=== PATIENT | female | born 1935 | race Caucasian/White ===

== ENCOUNTER 2023-11-02 01:33 | Inpatient (IN) | payer OTHER, SELFPAY ==
[2023-11-01 17:38] VITALS: BMI 27.0
[2023-11-01 17:46] VITALS: BP 130/84
[2023-11-01 18:23] LABS: % Basophils 0.4 % (0-2); % Eosinophils 1.4 % (0-6); % Immature Granulocytes 0.8 % (0-0.5); % Monocytes 10.3 % (1.7-9.3); % Neutrophils 83.1 % (42.2-75.2); Absolute Basophils 0.1 10^3/uL (0-0.2); Absolute Eosinophils 0.2 10^3/uL (0-0.7); Absolute Immature Granulocytes 0.1 10^3/uL (0-0.05); Absolute Lymphocytes 0.6 10^3/uL (1.2-3.4); Absolute Monocytes 1.6 10^3/uL (0.1-0.6); Absolute Neutrophils 12.8 10^3/uL (1.4-6.5); Hemoglobin 13.8 g/dL (12.0-16.0); Mean Corp Hgb Conc. 34.5 g/dL (33.0-37.0); Mean Corpuscular Hgb 31.2 pg (27.0-31.0); Mean Corpuscular Volume 90.3 fL (81.0-99.0); Mean Platelet Volume 10.4 fL (7.4-10.4); Nucleated Red Blood Cells % 0 %; Platelet Count 162 10^3/uL (130-400); Red Blood Cell Count 4.43 10^6/uL (4.20-5.40); Red Cell Dist. Width 12.5 % (11.5-14.5); White Blood Cell Count 15.4 10^3/uL (4.8-10.8)
[2023-11-01 18:26] LABS: ALT (SGPT) 11 U/L (0-35); AST (SGOT) 26 U/L (14-36); Albumin 3.3 g/dl (3.5-5.0); Alkaline Phosphatase 53 U/L (38-126); Blood Urea Nitrogen 29 mg/dl (7-17); Calcium 8.9 mg/dl (8.4-10.2); Carbon Dioxide 26 mmol/L (22-30); Chloride 104 mmol/L (98-107); Glucose 120 mg/dl (70-99); Lactic Acid 0.9 mmol/L (0.7-2.0); Potassium 3.6 mmol/L (3.5-5.1); Sodium 135 mmol/L (135-145); Total Bilirubin 1.3 mg/dl (0.2-1.3); Total Protein 5.9 g/dl (6.3-8.2); eGFR > 60.00
[2023-11-01 18:33] LABS: COVID-19 Antigen Negative (Negative)
[2023-11-01 22:00] VITALS: BP 133/76
[2023-11-01] MEDS: DUONEB 3 ML INH (22:30)
[2023-11-01 23:05] VITALS: BP 142/68
[2023-11-01] MEDS: NSS 1000 IV (23:07)
--- NOTE | 2023-11-01 23:08 | ED.GENMED ---
History of Present Illness
General
Chief Complaint: Breathing Problem
Source: patient and family
Exam Limitations: none
Time Seen by Provider: 11/01/23 21:14
Nursing documentation reviewed up to this point in time: agreed with
Travel History
Have you had any contact with someone who has COVID-19?: No
Do you have any symptoms of coronavirus? Fever > 100 degrees, chills, cough, shortness of breath, sore throat, loss of taste or smell, muscle aches, or headache?: No
History of Present Illness
History of Present Illness:
Patient to ED with complaint of cough, SOB, weakness, low grade temp, poor appetite. Symptoms started last night. Family reports has similar symptoms. He was evalutated at [facility] and discharged with an inhaler. Family states
advised CARMELITA come to ED for further evaluation. PUlse ox in mid 80'S RA. Placed on 3LNC in ED, pulse ox 93% at rest.
Past History
Past History
ED Past Medical History: GERD, HTN, Hypothyroidism and Other (PMR, dementia, T12 compression fracture, anxiety depression, diverticulitis, anemia)
ED Past Surgical History: Appendectomy, Orthopedic and Tonsilectomy
Social History
Tobacco: Non-smoker
Alcohol: None
Drug: None
Personal:
Living: with family
Review of Systems
Review of Systems
Allergies reviewed?: Yes
All Other Systems: ROS reviewed and negative except as documented in HPI and ROS
Constitutional: Reports fatigue
EENT: Reports no symptoms
Respiratory: Reports cough
Cardiac: Reports no symptoms
ABD/GI: Reports anorexia
: Reports no symptoms
Musculoskeletal: Reports no symptoms
Skin: Reports no symptoms
Neurological: Reports weakness
Psychiatric: Reports no symptoms
Phy Exam
General Physical Exam
General Presentation: mild distress
General age: appears stated age
General Skin: warm and dry
General Habitus: elderly
General Mental: alert
Cardiovascular Exam
Cardiovascular Exam: regular rate/rhythm and no edema
Pulmonary Exam
Pulmonary Exam: chest non tender and decreased breath sounds
Oxygen Status: oxygen 3 liters via NC
Cough: coarse cough
Gastrointestinal Exam
Gastrointestinal Exam: normal bowel sounds, non tender, soft, no organomegaly, no pulsatile mass, non distended and no cva tenderness
Musculoskeletal Exam
Musculoskeletal Exam: full ROM and neuro vasc intact
Skin Exam
Skin Exam: normal color, warm/dry and no rash
Psychiatric Exam
Psychiatric Exam: normal mood/affect
Scores
Heart Failure Risk
Heart Failure Risk Score: Not Applicable
Course
Orders/Labs/Results
Orders:
Orders
11/01/23
CR Chest - 2 Views Urgent
Comment:
Reason For Exam: cough
11/01/23 18:03
COVID-19 Antigen Urgent
Source: Nasal Swab
Complete Blood Count/With Diff Urgent
Comprehensive Metabolic Panel Urgent
Lactic Acid Urgent
NT-proBNP Urgent
Comment: ADD ON
Blood Culture Urgent
JOSE Source: Blood/Venous
Specimen Description:
Influenza A+B Rapid Molecular Urgent
JOSE Source: Nasal Swab
Specimen Description:
11/01/23 21:55
Ipratropium/Albuterol Sulfate [Duoneb] 3 ml INH R NOW ONE
11/01/23 21:56
0.9% Sodium Chloride 1000 ml [Nss] 1,000 ml IV BOLUS
11/01/23 23:04
Lactic Acid Urgent
Urinalysis Reflex To Culture Urgent
Date Specimen was Collected: 11/02/23
Time Specimen was Collected: 02:50
11/01/23 23:09
Add On- LAB Urgent
Tests Added?: BNP
11/01/23 23:43
Azithromycin 500 mg/250 ml [Zithromax Infusion] 500 mg in 250 ml IV NOW
Aztreonam [Azactam] 2,000 mg IV NOW STA
11/02/23 01:03
Admit/Transfer Patient As Directed
Co-Sign Provider:
Level of Care: Inpatient admission
Assign to:: Telemetry
Physician / Group: Troy
Diagnosis: Acute Hypoxemic Resp Insufficiency, Bronchitis
Reason for Telemetry: Arrhythmia
Date to Stop Telemetry: 11/05/23
Time to Stop Telemetry: 11:00
Reason for Hospitalization: Acute Hypoxemic Resp Insufficiency, Bronchitis
Expected length of stay greater than two midnights?: Yes
ELOS- Estimated Length of Stay in days: 3
I certify the patient meets the requirements for IP care: Yes
Code Status As Directed
Resuscitation Status: Full Code
11/02/23 01:36
Albuterol Nebs [Ventolin Nebules] 2.5 mg INH R Q4HPRN PRN
11/02/23 01:36
Activity As Directed
Activity Level: Out of Bed- Chair
With Assistance
Bladder Scan As Directed
Follow Bladder Retention/Intermittent Cath Algorithm?: Yes
PRN if no void in __ hours: 6
Frequency: Per Retention Algorithm
If Bladder Scan Result >: 400
then:: Straight cath
I/O [Intake/ Output] As Directed
Frequency: Per unit guidelines
Straight Cath As Directed
Frequency: Per Retention Algorithm
Additional Instructions: straight cath as needed per acute urinary retention algorithm for 24 hrs
Additional Instructions: for bladder scan greater than 400 mL
Vital Signs As Directed
Frequency: Per unit guidelines
Chest PT [Rx Chest Pt] [RESP] Routine
Special Instructions: BID
Oxygen Therapy [O2 Therapy] [RESP] Routine
Titrate/Wean O2 to maintain O2 sat greater than (%): 94
Ot Eval And Treat Routine
PT Consult [Pt Eval And Treat] Routine
Activity Level: Ambulate
With Assistance
Speech Therapy Eval & Treat Routine
DX Deep Vein Thrombosis Video Routine
11/02/23 05:31
Basic Metabolic Panel IN AM
Complete Blood Count/No Diff IN AM
11/02/23 Breakfast
Regular
At Your Request: Limited Participation
US Periph Venous UPPER Ext LT IN AM
Comment:
Reason For Exam: Asymmetric Hand Swelling
11/02/23 07:00
Levothyroxine [Synthroid] 100 mcg PO DAILY AT 0700
11/02/23 08:00
Acetaminophen [Tylenol] 1,000 mg PO TID
Duloxetine Delayed Release [Cymbalta Delayed Release] 30 mg PO BID
Guaifenesin [Mucinex] 600 mg PO Q12
Heparin 5,000 units SC Q12
Ipratropium/Albuterol Sulfate [Duoneb] 3 ml INH R QID
Prednisone [Deltasone] 5 mg PO DAILY
11/02/23 20:00
Doxycycline [Vibramycin] 100 mg PO Q12
11/02/23 22:00
Divalproex Extended Rel. 24 Hr [Depakote ER (24 Hr Release)] 500 mg PO HS
11/05/23 11:00
DC Protocol for Telemetry ONCE
Abnormal Lab Results
11/01/23
18:03
WBC 15.4 H 10^3/uL
(4.8-10.8)
MCH 31.2 H pg
(27.0-31.0)
Abs Immat Gran (auto) 0.1 H 10^3/uL
(0-0.05)
Absolute Neuts (auto) 12.8 H 10^3/uL
(1.4-6.5)
Absolute Lymphs (auto) 0.6 L 10^3/uL
(1.2-3.4)
Absolute Monos (auto) 1.6 H 10^3/uL
(0.1-0.6)
Immature Gran % 0.8 H %
(0-0.5)
Neutrophils % 83.1 H %
(42.2-75.2)
Lymphocytes % 4.0 L %
(20.5-51.1)
Monocytes % 10.3 H %
(1.7-9.3)
BUN 29 H mg/dl
(7-17)
Glucose 120 H mg/dl
(70-99)
Total Protein 5.9 L g/dl
(6.3-8.2)
Albumin 3.3 L g/dl
(3.5-5.0)
11/01/23 18:03
11/01/23 18:03
Vital Signs
Initial and Last Documented VS:
Initial Vital Signs
Temp Pulse Resp BP Pulse Ox
99.3 F 97 18 130/84 92
11/01/23 17:46 11/01/23 17:46 11/01/23 17:46 11/01/23 17:46 11/01/23 17:46
Last Documented Vital Signs
Temp Pulse Resp BP Pulse Ox
97.7 F 81 16 114/54 92
11/03/23 15:00 11/03/23 15:33 11/03/23 15:33 11/03/23 15:00 11/03/23 15:33
*Radiology
Radiology exam reviewed: radiology read reviewed
*Pulse Oximetry
Patient hypoxic: yes
*Critical Care Note
Total Time (30-74mins, 75-104mins- exclusive of procedures): Not Applicable
Update Note
Update Note:
Patient to ED with complaint of weakness, cough, poor appetite x 24 hours. Low grade temp (99.5) at home. Pulse ox mid 80's RA on arrival. Placed on 3LNC in ED,given neb tx, now 94%.Labs reviewed. WBC 15 with left shift. Lactic normal. CXR
NAD. Continues with course cough. Clinically her symptoms are consistent with early pneumonia. Will admit to hospitalist
ED Attending Note
-
Portions of this chart may have been created with voice recognition software.� Occasional wrong word or��sound alike� substitutions may have occurred due to the inherent limitations of voice recognition software.
Discharge Plan
Departure
Patient Disposition: Admit
Date of Disposition: 11/01/23
Time of Disposition: 23:46
Presentation/result/management discussed w/ accepting MD/DO: Hospitalist
Condition: Fair
Covid-19: Not Applicable
Discharge Problem:
Acute bronchitis, Hypoxemia
Interventions
Interventions:
*Risk Screen - Suicide Last Done: 11/01/23 17:46
*General Assessment Last Done: 11/01/23 17:46
*Neglect/Abuse Screening Last Done: 11/01/23 22:01
ED- Fall Risk Assessment Last Done: 11/01/23 22:00
*ED COVID-19 Vaccine History Last Done: 11/01/23 22:01
*Nursing Disposition Last Done: 11/02/23 03:46
ED- Cardiac Assessment Last Done: 11/01/23 22:00
ED- Pulmonary Assessment Last Done: 11/01/23 22:00
Discharge Date and Time
Discharge Date/Time: 11/02/23 03:46
[2023-11-01 23:22] LABS: Lactic Acid 1.6 mmol/L (0.7-2.0)
[2023-11-01] MEDS: AZACTAM 2000 MG IV (23:49)
[2023-11-01] MEDS: ZITHROMAX INFUSION 250 IV (23:50)
[2023-11-02] VITALS (11 sets, daily range): BP systolic 106–154; BP diastolic 53–76; PULSE 85–89; O2SAT 89–92; BMI 26.4
[2023-11-02 00:14] LABS: NT-proBNP 871 pg/ml
--- NOTE | 2023-11-02 01:08 | HPS.HSE ---
Family Physician
-
Family Physician: Mathew Barr IV, MD
Chief Complaint
-
Cough, SOB
History of Present Illness
Patient is an 88y F with PMH significant for dementia, polymyalgia rheumatica and hypothyroidism who presents to ED for evaluation of cough and SOB. History obtained from patient and family present at the bedside. Patient at times does not
speak much - which daughter states is typical for her. Patient's had cough / cold symptoms for the past several days. About 1 1/2 days ago, patient developed cough that was loose, but not notably productive. Her cough seemed to be much
worse when lying flat. Today patient and her were taken to Urgent Care for evaluation of their symptoms. He was discharged with an inhaler. She was noted to be hypoxemic with SpO2 in the 80s on room air and was referred to the ED for
further evaluation.
At the time of my examination, patient is sleeping comfortably but awakens easily. She has adequate oxygenation on supplemental O2.
Medical History
Past Medical History
Past Medical History: Reports Other
Additional Past Medical History:
Dementia/Short-Term Memory Impairment
Chronic Pain with Opiod Dependence
Polymyalgia Rheumatica
Hypothyroidism
Anxiety
Migraine Headache
Past Surgical History: Reports Other
Additional Past Surgical History:
Tonsillectomy
Appendectomy
Fundoplication
Left elbow surgery
Laminectomy
Bilateral knee replacements
Left hip replacement
Cataracts
Social History
Tobacco: Non-smoker
Alcohol: None
Living: With Family
Family History
Family History: Not pertinent
Allergies / Home Medications
Allergies reflects when Allergies were last updated in [facility].
Home Medications with original date entered in [facility]
Allergy/Medication List:
Allergies
Allergy/AdvReac Type Severity Reaction Status Date / Time
adhesive tape Allergy Rash Verified 11/01/23 17:46
Anesthetics - Amide Type - Allergy gets Verified 11/01/23 17:46
Select A nervous
Penicillins Allergy Hives Verified 11/01/23 17:46
Home Medications
duloxetine 30 mg capsule,delayed release 30 mg PO BID Neurological Condition 09/06/22
hydrocodone 5 mg-acetaminophen 325 mg tablet 1 tab PO BID 09/06/22
naproxen sodium 220 mg tablet (Aleve) 220 mg PO HS Pain 09/06/22
cholecalciferol (vitamin D3) 25 mcg (1,000 unit) tablet (Vitamin D3) 25 mcg PO DAILY 11/01/23
divalproex 250 mg tablet,extended release 24 hr 500 mg PO HS 11/01/23
levothyroxine 100 mcg tablet 100 mcg PO DAILY 11/01/23
prednisone 5 mg tablet 5 mg PO DAILY 11/01/23
Review of Systems
-
History Source: Patient and Family
A 12 point ROS was completed and negative except as noted: Yes
Constitutional: Reports Fatigue; Denies Fever or Chills
Respiratory: Reports Cough and Trouble Breathing; Denies Hemoptysis
Cardiac: Denies Chest Pain or Diaphoresis
Abdomen/GI: Denies Abdominal Pain, Nausea, Vomiting, Diarrhea, Bloody Stools or Black Stools
: Denies Dysuria, Frequency or Flank Pain
Neurological: Reports Weakness (chronic / wheelchair bound at baseline.); Denies Dizzy or Headache
Psych: Reports Dementia
Physical Exam
Vital Signs
Vital Signs
Temp Pulse Resp BP Pulse Ox
99.3 F 85 24 154/76 94
11/01/23 17:46 11/02/23 00:00 11/01/23 23:45 11/02/23 00:00 11/02/23 00:07
Physical Exam
General: Other (88y F in no acute distress. Slow speech. At times answers questions normally and at times has almost expressive aphasia (baseline per family).)
HEENT: PERRLA and Other (Dry MM.)
Respiratory: Other (Bibasilar rales about 1/2 up. No wheezes / rhonchi.)
Cardiac: S1/S2, Regular Rhythm and Murmur (III/ LARRY)
GI: Soft, Non Tender, Non Distended and Normal Bowel Sounds
Musculoskeletal: No Clubbing, No Cyanosis and Other (Trace edema on the L hand. No erythema, induration or tenderness.)
Neuro: Awake
Psych: Apparent Dementia
Laboratory Results
-
11/01/23 18:03
11/01/23 18:03
Laboratory Results
Lactic Acid 1.6 mmol/L (0.7-2.0) 11/01/23 23:04
Total Bilirubin 1.3 mg/dl (0.2-1.3) 11/01/23 18:03
AST 26 U/L (14-36) 11/01/23 18:03
ALT 11 U/L (0-35) 11/01/23 18:03
Alkaline Phosphatase 53 U/L (38-126) 11/01/23 18:03
Impression/Plan
-
A/P: Patient is an 88y F with PMH significant for dementia, hypothyroidism and polymyalgia rheumatica who presents to ED for evaluation of cough and dyspnea.
Acute Hypoxemic Respiratory Insufficiency
Acute Bronchitis
- Admit for further evaluation and treatment.
- SpO2 reportedly in the 80s on room air - now stable on supplemental O2.
- Will cover with empiric abx with doxycycline for now.
- Continue O2 support.
- Chest PT, mucolytics, nebs, etc.
- Follow for clinical improvement.
LUE Edema
- Left hand edema. Likely related to prior trauma / chronic L elbow limitation and deformity.
- Check US to rule out DVT.
Senile Dementia
- Has been progressive - but seems at baseline currently per daughter.
- Follow for any acute agitation / delirium during hospital stay.
- Continue mood stabilizing medication.
PMR
- Stable. No current complaints of pain.
- Continue prednisone dose without changes for now.
Chronic Pain Syndrome
- Continue Cymbalta. Standing Tylenol.
- [place] PRN.
- Follow for any acute changes.
Hypothyroidism
- Continue current T4 supplementation.
DVT Prophylaxis: Subcut Heparin
Code Status: Full
[2023-11-02 03:41] LABS: Urine Albumin Trace (Neg - Trace); Urine Bilirubin 1+ (Negative); Urine Character Slightly Cloudy (Clear); Urine Color Yellow; Urine Glucose Negative (Negative); Urine Ketone 3+ (Negative); Urine Leukocyte Trace (Negative); Urine Nitrite Negative (Negative); Urine Occult Blood Negative (Negative); Urine Specific Gravity 1.025 (<1.030); Urine Urobilinogen 2+ (Neg - 1+)
[2023-11-02 04:22] LABS: Urine Squamous Cell >30 /LPF (Few)
[2023-11-02 04:25] LABS: Urine Amorphous Seen
[2023-11-02 04:26] LABS: Urine Bacteria Moderate (Negative); Urine White Cell 16-20 /HPF (0-5)
[2023-11-02 04:27] LABS: Urine Calcium Oxalate Crystals Seen; Urine Red Blood Cell 0-2 /HPF (0-2)
[2023-11-02 05:58] LABS: Hematocrit 35.7 % (37.0-47.0); Hemoglobin 12.1 g/dL (12.0-16.0); Mean Corp Hgb Conc. 33.9 g/dL (33.0-37.0); Mean Corpuscular Hgb 31.4 pg (27.0-31.0); Mean Corpuscular Volume 92.7 fL (81.0-99.0); Mean Platelet Volume 10.6 fL (7.4-10.4); Platelet Count 142 10^3/uL (130-400); Red Blood Cell Count 3.85 10^6/uL (4.20-5.40); Red Cell Dist. Width 12.4 % (11.5-14.5); White Blood Cell Count 11.8 10^3/uL (4.8-10.8)
[2023-11-02] MEDS: SYNTHROID 100 MCG PO (05:59)
[2023-11-02 06:17] LABS: Blood Urea Nitrogen 29 mg/dl (7-17); Calcium 8.4 mg/dl (8.4-10.2); Carbon Dioxide 25 mmol/L (22-30); Chloride 107 mmol/L (98-107); Estimated Creatinine Clearance 55 ml/min; Glucose 97 mg/dl (70-99); Sodium 135 mmol/L (135-145); eGFR > 60.00
[2023-11-02] MEDS: DUONEB 3 ML INH ×4 (07:42→19:16)
[2023-11-02] MEDS: NORCO 5/325 1 TABLET PO ×2 (08:34→21:32)
[2023-11-02] MEDS: CYMBALTA DELAYED RELEASE 30 MG PO ×2 (08:36→21:31)
[2023-11-02] MEDS: MUCINEX 600 MG PO ×2 (08:36→21:32)
[2023-11-02] MEDS: DELTASONE 5 MG PO (08:36)
[2023-11-02] MEDS: HEPARIN 5000 UNITS SC ×2 (08:36→21:31)
[2023-11-02] MEDS: TYLENOL PO ×2 (09:42→22:48)
--- NOTE | 2023-11-02 13:46 | W.PN.HOSP.TC ---
Today's Communication/Plan
-
duonebs
doxycyline
wean o2
Assessment / Plan
Assessment / Plan
Physical Exam
General: Other (88y F in no acute distress.� Slow speech.� At times answers questions normally and at times has almost expressive aphasia (baseline per family).)
HEENT: PERRLA and Other (Dry MM.)
Respiratory: Other (Bibasilar wheezing, lower bases)
Cardiac: S1/S2, Regular Rhythm and Murmur (III/ LARRY)
GI: Soft, Non Tender, Non Distended and Normal Bowel Sounds
Musculoskeletal: No Clubbing, No Cyanosis and Other (Trace edema on the L hand.� No erythema, induration or tenderness.)
Neuro: Awake
Psych: Apparent Dementia
A/P:� Patient is an 88y F with PMH significant for dementia, hypothyroidism and polymyalgia rheumatica who presents to ED for evaluation of cough and dyspnea.
Acute Hypoxemic Respiratory Insufficiency
Acute Bronchitis
patient requiring 4L NC and wheezing on exam
- SpO2 reportedly in the 80s on room air - now stable on supplemental O2.
�- Will cover with empiric abx with doxycycline for now.
�- Continue O2 support.
�- Chest PT, mucolytics, duonebs standing
�- Follow for clinical improvement.
- wean o2 as tolerated; goal O2>92%
Leukocytosis
- Possibly secondary to acute bronchitis versus stress
� Continue monitoring fever curve, white count
LUE Edema
�- Left hand edema.� Likely related to prior trauma / chronic L elbow limitation and deformity.
�- Check US to rule out DVT.
Senile Dementia
�- Has been progressive - but seems at baseline currently per daughter.
�- Follow for any acute agitation / delirium during hospital stay.
�- Continue mood stabilizing medication.
PMR
�- Stable.� No current complaints of pain.
�- Continue prednisone dose without changes for now.
Chronic Pain Syndrome
�- Continue Cymbalta.� Standing Tylenol.
�- [place] PRN.
�- Follow for any acute changes.
Hypothyroidism
�- Continue current T4 supplementation.
DVT Prophylaxis:� Subcut Heparin
Code Status:� Full
Anticipated Discharge: Within 24 hours
Subjective/Interval History
-
Date of Service: November 02, 2023
still wheezing
Objective Data
-
Labs:
Laboratory Results
11/02/23
05:31
WBC 11.8 H
Hgb 12.1
Hct 35.7 L
Plt Count 142
Sodium 135
Potassium 4.0
Chloride 107
Carbon Dioxide 25
BUN 29 H
Creatinine 0.6
Glucose 97
Calcium 8.4
Vital Signs:
Vital Signs
Temp Pulse Resp BP Pulse Ox
98.9 F 72 16 109/63 96
11/02/23 11:00 11/02/23 11:29 11/02/23 11:29 11/02/23 11:00 11/02/23 11:52
I&O
11/01/23 11/02/23 11/03/23
06:59 06:59 06:59
Output Total 100 / 100
Balance -100 / -100
Review of Systems
-
History Source: Patient
All other systems: Not reviewed unless documented
Data Reviewed
-
Diagnostic Radiology: Image personally visualized and interpreted and Report Reviewed by me
Labs: Labs Reviewed by me
--- NOTE | 2023-11-02 13:52 | W.PN.HOSP.TC ---
Today's Communication/Plan
-
duonebs
wean o2
doxy
Assessment / Plan
Assessment / Plan
Physical Exam
General: Other (88y F in no acute distress.� Slow speech.� At times answers questions normally and at times has almost expressive aphasia (baseline per family).)
HEENT: PERRLA and Other (Dry MM.)
Respiratory: Other (Bibasilar wheezing, lower bases)
Cardiac: S1/S2, Regular Rhythm and Murmur (III/ LARRY)
GI: Soft, Non Tender, Non Distended and Normal Bowel Sounds
Musculoskeletal: No Clubbing, No Cyanosis and Other (Trace edema on the L hand.� No erythema, induration or tenderness.)
Neuro: Awake
Psych: Apparent Dementia
A/P:� Patient is an 88y F with PMH significant for dementia, hypothyroidism and polymyalgia rheumatica who presents to ED for evaluation of cough and dyspnea.
Acute Hypoxemic Respiratory Insufficiency
Acute Bronchitis
patient requiring 4L NC and wheezing on exam
- SpO2 reportedly in the 80s on room air - now stable on supplemental O2.
�- Will cover with empiric abx with doxycycline for now.
�- Continue O2 support.
�- Chest PT, mucolytics, duonebs standing
�- Follow for clinical improvement.
- wean o2 as tolerated; goal O2>92%
Leukocytosis
- Possibly secondary to acute bronchitis versus stress
� Continue monitoring fever curve, white count
LUE Edema
�- Left hand edema.� Likely related to prior trauma / chronic L elbow limitation and deformity.
�- Check US to rule out DVT.
Senile Dementia
�- Has been progressive - but seems at baseline currently per daughter.
�- Follow for any acute agitation / delirium during hospital stay.
�- Continue mood stabilizing medication.
PMR
�- Stable.� No current complaints of pain.
�- Continue prednisone dose without changes for now.
Chronic Pain Syndrome
�- Continue Cymbalta.� Standing Tylenol.
�- [place] PRN.
�- Follow for any acute changes.
Hypothyroidism
�- Continue current T4 supplementation.
DVT Prophylaxis:� Subcut Heparin
Code Status:� Full
Anticipated Discharge: 24 - 48 hours
Subjective/Interval History
-
Date of Service: November 02, 2023
stilll wheezing
Objective Data
-
Labs:
Laboratory Results
11/02/23
05:31
WBC 11.8 H
Hgb 12.1
Hct 35.7 L
Plt Count 142
Sodium 135
Potassium 4.0
Chloride 107
Carbon Dioxide 25
BUN 29 H
Creatinine 0.6
Glucose 97
Calcium 8.4
Vital Signs:
Vital Signs
Temp Pulse Resp BP Pulse Ox
98.9 F 72 16 109/63 96
11/02/23 11:00 11/02/23 11:29 11/02/23 11:29 11/02/23 11:00 11/02/23 11:52
I&O
11/01/23 11/02/23 11/03/23
06:59 06:59 06:59
Output Total 100 / 100
Balance -100 / -100
Review of Systems
-
History Source: Patient
All other systems: Not reviewed unless documented
Data Reviewed
-
Diagnostic Radiology: Image personally visualized and interpreted and Report Reviewed by me
Labs: Labs Reviewed by me
[2023-11-02] MEDS: TYLENOL 1000 MG PO (15:08)
--- NOTE | 2023-11-02 16:23 | CM ---
Chart reviewed. Met with pt and son at bedside
Pt with dementia, able to provide short answers to some questions
Pt lives with her at [facility] independent living
Pt has private care takers 16h/day
Able to feed self, follow commands, assist needed
DME includes rollator, rolling walker
Past sn[facility] -[facility]
Past HH - [facility]
PCP Dr Mathew Barr
Pharm [facility]
Anticipate return to previous setting with HH vs SNF
--- NOTE | 2023-11-02 16:33 | PTOTSP ---
Dysphagia Evaluation
Patient presents with signs concerning for mild oral dysphagia which is likely impacted by her acute illness in combination with her history of dementia.
Recommend:
1. IDDSI Level 6 (Soft and Bite Sized), IDDSI Level 0 (Thin Liquids)
2. Medications - whole in puree with a liquid wash as needed
3. Full supervision and assistance with PO intake
4. Strategies: upright to 90 degrees, small single sips/bites, slow rate, ensure patient swallows/clears mouth before next sip/bite, liquid wash as needed to help clear oral cavity
5. Dysphagia therapy follow up at the acute care level for therapeutic assessment of swallowing and to determine if/when patient is appropriate to advance to baseline diet.
[2023-11-02] MEDS: VIBRAMYCIN 100 MG PO (21:32)
[2023-11-02] MEDS: DEPAKOTE ER (24 HR RELEASE) 500 MG PO (22:44)
[2023-11-03] VITALS (7 sets, daily range): BP systolic 108–140; BP diastolic 54–74; PULSE 73; O2SAT 94
[2023-11-03] MEDS: SYNTHROID 100 MCG PO (06:46)
[2023-11-03] MEDS: DUONEB 3 ML INH ×4 (07:31→19:37)
[2023-11-03 07:41] LABS: Hematocrit 31.9 % (37.0-47.0); Mean Corp Hgb Conc. 34.5 g/dL (33.0-37.0); Mean Corpuscular Volume 92.7 fL (81.0-99.0); Mean Platelet Volume 10.9 fL (7.4-10.4); Platelet Count 138 10^3/uL (130-400); Red Blood Cell Count 3.44 10^6/uL (4.20-5.40); Red Cell Dist. Width 12.5 % (11.5-14.5); White Blood Cell Count 8.6 10^3/uL (4.8-10.8)
[2023-11-03 08:05] LABS: ALT (SGPT) < 10 U/L (0-35); AST (SGOT) 18 U/L (14-36); Albumin 2.5 g/dl (3.5-5.0); Alkaline Phosphatase 47 U/L (38-126); Blood Urea Nitrogen 30 mg/dl (7-17); Calcium 8.6 mg/dl (8.4-10.2); Carbon Dioxide 27 mmol/L (22-30); Chloride 103 mmol/L (98-107); Estimated Creatinine Clearance 55 ml/min; Glucose 95 mg/dl (70-99); Potassium 3.2 mmol/L (3.5-5.1); Sodium 136 mmol/L (135-145); Total Bilirubin 0.5 mg/dl (0.2-1.3); Total Protein 4.8 g/dl (6.3-8.2); eGFR > 60.00
[2023-11-03] MEDS: CYMBALTA DELAYED RELEASE 30 MG PO ×2 (08:45→20:41)
[2023-11-03] MEDS: VIBRAMYCIN 100 MG PO ×2 (08:45→20:41)
[2023-11-03] MEDS: NORCO 5/325 1 TABLET PO ×2 (08:46→21:13)
[2023-11-03] MEDS: TYLENOL PO ×2 (08:46→21:13)
[2023-11-03] MEDS: DELTASONE 5 MG PO (08:47)
[2023-11-03] MEDS: HEPARIN 5000 UNITS SC ×2 (08:47→20:42)
[2023-11-03] MEDS: MUCINEX 600 MG PO ×2 (08:47→20:41)
[2023-11-03] MEDS: KCL ELIXIR 40 MEQ PO (09:45)
--- NOTE | 2023-11-03 11:14 | CM ---
[facility] [employer] [facility] [employer] spoke with pts daughter
Family has pvt care takers 16hrs/day and working on obtaining more hours. Prefer pt to return home at d/c
Requesting [facility] for home care needs - PT/OT
Referral sent in [facility]
Plan - home with home care - [facility] when medically ready
--- NOTE | 2023-11-03 13:55 | W.PN.HOSP.TC ---
Today's Communication/Plan
-
duonebs
doxycycline
wean o2 to RA
Assessment / Plan
Assessment / Plan
Physical Exam
General: Other (88y F in no acute distress.� Slow speech.� At times answers questions normally and at times has almost expressive aphasia (baseline per family).)
HEENT: PERRLA and Other (Dry MM.)
Respiratory: Other (mild Bibasilar wheezing, lower bases - marked improvement from yesterday)
Cardiac: S1/S2, Regular Rhythm and Murmur (III/ LARRY)
GI: Soft, Non Tender, Non Distended and Normal Bowel Sounds
Musculoskeletal: No Clubbing, No Cyanosis and Other (Trace edema on the L hand.� No erythema, induration or tenderness.)
Neuro: Awake
Psych: Apparent Dementia
A/P:� Patient is an 88y F with PMH significant for dementia, hypothyroidism and polymyalgia rheumatica who presents to ED for evaluation of cough and dyspnea.
Acute Hypoxemic Respiratory Insufficiency
Acute Bronchitis
patient requiring 4L NC and wheezing on exam on admission- continuing to wean
- SpO2 reportedly in the 80s on room air - now stable on supplemental O2. - improving now on 1L
�- Will cover with empiric abx with doxycycline for now - 5 day course
�- Continue O2 support.
�- Chest PT, mucolytics, duonebs standing
�- Follow for clinical improvement.
�- wean o2 as tolerated; goal O2>92%
Leukocytosis
- Possibly secondary to acute bronchitis versus stress
� Continue monitoring fever curve, white count
#Hypokalemia
-monitor and replete
LUE Edema
�- Left hand edema.� Likely related to prior trauma / chronic L elbow limitation and dependent edema
�- US negative for DVT
Senile Dementia
�- Has been progressive - but seems at baseline currently per daughter.
�- Follow for any acute agitation / delirium during hospital stay.
�- Continue mood stabilizing medication.
PMR
�- Stable.� No current complaints of pain.
�- Continue prednisone dose without changes for now.
Chronic Pain Syndrome
�- Continue Cymbalta.� Standing Tylenol.
�- [place] PRN.
�- Follow for any acute changes.
Hypothyroidism
�- Continue current T4 supplementation.
DVT Prophylaxis:� Subcut Heparin
Code Status:� Full
Anticipated Discharge: Within 24 hours
Subjective/Interval History
-
Date of Service: November 03, 2023
wheezing markedly improved although still present
Objective Data
-
Labs:
Laboratory Results
11/03/23
07:03
WBC 8.6
Hgb 11.0 L
Hct 31.9 L
Plt Count 138
Sodium 136
Potassium 3.2 L
Chloride 103
Carbon Dioxide 27
BUN 30 H
Creatinine 0.5 L
Glucose 95
Calcium 8.6
Total Bilirubin 0.5
AST 18
ALT < 10
Alkaline Phosphatase 47
Vital Signs:
Vital Signs
Temp Pulse Resp BP Pulse Ox
98.1 F 87 16 108/69 94
11/03/23 11:00 11/03/23 11:06 11/03/23 11:06 11/03/23 11:00 11/03/23 11:06
I&O
11/02/23 11/03/23 11/04/23
06:59 06:59 06:59
Intake Total 460 / 460
Output Total 100 / 100
Balance -100 / -100 460 / 460
Review of Systems
-
History Source: Patient
All other systems: Not reviewed unless documented
Data Reviewed
-
Diagnostic Radiology: Image personally visualized and interpreted and Report Reviewed by me
Labs: Labs Reviewed by me
[2023-11-03] MEDS: TYLENOL 1000 MG PO (17:42)
--- NOTE | 2023-11-03 18:12 | CM ---
patient on doxy,duo nebs,still wheezing,weaned o2 to ra.referal sent to [facility] for skilled rehab.they have accepted patient but auth is needed.
[2023-11-03] MEDS: OCEAN, SALINE MIST 2 SPRAYS NASAL (20:43)
[2023-11-03] MEDS: DEPAKOTE ER (24 HR RELEASE) 500 MG PO (21:13)
[2023-11-04 03:40] VITALS: BP 129/63
[2023-11-04 05:44] LABS: Hematocrit 33.7 % (37.0-47.0); Hemoglobin 11.2 g/dL (12.0-16.0); Mean Corp Hgb Conc. 33.2 g/dL (33.0-37.0); Mean Corpuscular Hgb 30.9 pg (27.0-31.0); Mean Corpuscular Volume 93.1 fL (81.0-99.0); Mean Platelet Volume 10.6 fL (7.4-10.4); Platelet Count 160 10^3/uL (130-400); Red Blood Cell Count 3.62 10^6/uL (4.20-5.40); Red Cell Dist. Width 12.2 % (11.5-14.5); White Blood Cell Count 7.5 10^3/uL (4.8-10.8)
[2023-11-04] MEDS: SYNTHROID 100 MCG PO (06:06)
[2023-11-04 06:08] LABS: Blood Urea Nitrogen 26 mg/dl (7-17); Carbon Dioxide 29 mmol/L (22-30); Chloride 101 mmol/L (98-107); Estimated Creatinine Clearance 55 ml/min; Glucose 98 mg/dl (70-99); Sodium 135 mmol/L (135-145); eGFR > 60.00
[2023-11-04] MEDS: OCEAN, SALINE MIST 2 SPRAYS NASAL (06:09)
[2023-11-04 07:00] VITALS: BP 131/66
[2023-11-04] MEDS: DUONEB 3 ML INH ×2 (07:23→11:13)
[2023-11-04] MEDS: DELTASONE 5 MG PO (09:05)
[2023-11-04] MEDS: CYMBALTA DELAYED RELEASE 30 MG PO (09:05)
[2023-11-04] MEDS: NORCO 5/325 1 TABLET PO (09:05)
[2023-11-04] MEDS: MUCINEX 600 MG PO (09:06)
[2023-11-04] MEDS: VIBRAMYCIN 100 MG PO (09:07)
[2023-11-04] MEDS: HEPARIN 5000 UNITS SC (09:07)
[2023-11-04] MEDS: TYLENOL PO (09:07)
[2023-11-04 11:00] VITALS: BP 118/61
--- NOTE | 2023-11-04 12:51 | W.PN.HOSP.TC ---
Addendum entered and electronically signed by Abdirashid Morrison MD 11/04/23 15:47:
[id number]
Original Note:
Today's Communication/Plan
-
doxy
albuterol prn
dc ready, cm aware
Assessment / Plan
Assessment / Plan
Physical Exam
General: Other (88y F in no acute distress.� Slow speech.� At times answers questions normally and at times has almost expressive aphasia (baseline per family).)
HEENT: PERRLA and Other (Dry MM.)
Respiratory: Other (CTAB)
Cardiac: S1/S2, Regular Rhythm and Murmur (III/ LARRY)
GI: Soft, Non Tender, Non Distended and Normal Bowel Sounds
Musculoskeletal: No Clubbing, No Cyanosis and Other (Trace edema on the L hand.� No erythema, induration or tenderness.)
Neuro: Awake
Psych: Apparent Dementia
A/P:� Patient is an 88y F with PMH significant for dementia, hypothyroidism and polymyalgia rheumatica who presents to ED for evaluation of cough and dyspnea.
Acute Hypoxemic Respiratory Insufficiency, resolved
Acute Bronchitis, resolved
patient requiring 4L NC and wheezing on exam on admission- continuing to wean
- SpO2 reportedly in the 80s on room air - now stable on supplemental O2. -Resolved
�- Will cover with empiric abx with doxycycline for now - 5 day course
�- Continue O2 support.
�- Chest PT, mucolytics, duonebs switch to as needed
�- Follow for clinical improvement.
�- wean o2 as tolerated; goal O2>92%
Tremors, right hand
� Self resolving shortly after
� Most likely secondary albuterol
� Follow-up neurology outpatient
� Change albuterol to as needed
Leukocytosis
- Possibly secondary to acute bronchitis versus stress
� Continue monitoring fever curve, white count
#Hypokalemia
-monitor and replete
LUE Edema
�- Left hand edema.� Likely related to prior trauma / chronic L elbow limitation and dependent edema
�- US negative for DVT
Dementia
�- Has been progressive - but seems at baseline currently per daughter.
�- Follow for any acute agitation / delirium during hospital stay.
�- Continue mood stabilizing medication.
PMR
�- Stable.� No current complaints of pain.
�- Continue prednisone dose without changes for now.
Chronic Pain Syndrome
�- Continue Cymbalta.� Standing Tylenol.
�- [place] PRN.
�- Follow for any acute changes.
Hypothyroidism
�- Continue current T4 supplementation.
DVT Prophylaxis:� Subcut Heparin
Code Status:� Full
DC ready, CM aware
Anticipated Discharge: Today
Subjective/Interval History
-
Date of Service: November 04, 2023
No acute events, clear to auscultation bilaterally
Objective Data
-
Labs:
Laboratory Results
11/04/23
05:30
WBC 7.5
Hgb 11.2 L
Hct 33.7 L
Plt Count 160
Sodium 135
Potassium 4.0
Chloride 101
Carbon Dioxide 29
BUN 26 H
Creatinine 0.6
Glucose 98
Calcium 9.0
Vital Signs:
Vital Signs
Temp Pulse Resp BP Pulse Ox
98.6 F 82 18 118/61 92
11/04/23 11:00 11/04/23 11:15 11/04/23 11:15 11/04/23 11:00 11/04/23 11:15
I&O
11/03/23 11/04/23 11/05/23
06:59 06:59 06:59
Intake Total 460 / 460 180 / 180
Balance 460 / 460 180 / 180
Review of Systems
-
History Source: Patient
All other systems: Not reviewed unless documented
Data Reviewed
-
Diagnostic Radiology: Image personally visualized and interpreted and Report Reviewed by me
Labs: Labs Reviewed by me
--- NOTE | 2023-11-04 13:24 | CM ---
Addendum entered by WANDA Cornell 11/04/23 13:32:
Spoke with Mariel from [facility] to update about discharge.
Original Note:
Received notification from attending that patient will be discharged. Met with patient's daughter who clarified that she will return to her apt at [facility] with caregivers, family and Helenalos JONES. Will update [facility] that patient is leaving today.
Plan: Case management will continue to follow and assist with discharge planning. Home with Helenalos JONES.
--- NOTE | 2023-11-04 13:37 | W.DS.TRANS ---
DC Summary - Punch Operator
-
Discharge Instructions:
Discharge Diagnosis/Procedures Acute bronchitis
Acute hypoxic respiratory failure
Diet No restrictions
Activity As tolerated
Instructions:
Stand-Alone Forms:
Changes to Home Medications: Yes
Discharge Medications:
DC Medications w/original date entered in [employer]
duloxetine 30 mg capsule,delayed release 30 mg PO QDAY Neurological Condition 09/06/22
hydrocodone 5 mg-acetaminophen 325 mg tablet 1 tab PO BID pain 09/06/22
naproxen sodium 220 mg tablet (Aleve) 220 mg PO HS Pain 09/06/22
cholecalciferol (vitamin D3) 25 mcg (1,000 unit) tablet (Vitamin D3) 25 mcg PO DAILY Supplement 11/01/23
divalproex 250 mg tablet,extended release 24 hr 500 mg PO HS Neurological Condition 11/01/23
levothyroxine 100 mcg tablet 100 mcg PO DAILY hypothyroidism 11/01/23
prednisone 5 mg tablet 5 mg PO DAILY polymyalgia rheumatica 11/01/23
doxycycline hyclate 100 mg capsule 100 mg PO Q12 3 days #6 caps 11/04/23
Home Medication Changes
doxycycline hyclate 100 mg capsule 100 mg PO Q12 3 days #6 caps 11/04/23
Pending Results: No
== END 2023-11-04 14:50 | disposition home health service (06) | DRG 202 ==
LOC: 3 WEST ACU 01:33
PROVIDERS: Emergency Medicine; Nurse Practitioner; ADMITTING PHYSICIAN Hospitalist; ATTENDING PHYSICIAN Internal Medicine; EMERGENCY PHYSICIAN Student in an Organized Health Care Education/Training Program; FAMILY PHYSICIAN Family Medicine
DX: J20.9 Acute bronchitis, unspecified (principal); J96.01 Acute respiratory failure with hypoxia; F03.94 Unspecified dementia, unspecified severity, with anxiety; F03.93 Unspecified dementia, unspecified severity, with mood disturbance; Z11.52 Encounter for screening for COVID-19; M35.3 Polymyalgia rheumatica; G89.4 Chronic pain syndrome; E03.9 Hypothyroidism, unspecified; E87.6 Hypokalemia
CPT/HCPCS: 71046; 80048; 80053; 81003; 81015; 83605; 83880; 85025; 85027; 87040; 87086; 87502; 87811; 92610; 93971; 94640; 94667; 94668; 96361; 96365; 96375; 97163; 97167; 97530; 99285

== ENCOUNTER 2023-11-25 20:25 | Emergency (ER) | payer OTHER, SELFPAY ==
[2023-11-25 20:37] VITALS: BP 164/90
[2023-11-25 23:31] VITALS: BP 150/68
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
[2023-11-26] VITALS: BP 167/84
== END 2023-11-26 00:43 | disposition home or self-care (01) ==
LOC: EMR 20:25
PROVIDERS: EMERGENCY PHYSICIAN Emergency Medicine; FAMILY PHYSICIAN Family Medicine
DX: S80.11XA Contusion of right lower leg, initial encounter (principal); R60.0 Localized edema; R51.9 Headache, unspecified; W06.XXXA Fall from bed, initial encounter; I10 Essential (primary) hypertension; K21.9 Gastro-esophageal reflux disease without esophagitis; E03.9 Hypothyroidism, unspecified; F41.0 Panic disorder [episodic paroxysmal anxiety]; F41.9 Anxiety disorder, unspecified; F03.94 Unspecified dementia, unspecified severity, with anxiety; K57.92 Diverticulitis of intestine, part unspecified, without perforation or abscess without bleeding; D64.9 Anemia, unspecified; M35.3 Polymyalgia rheumatica; Z96.653 Presence of artificial knee joint, bilateral; Z96.642 Presence of left artificial hip joint; Z88.0 Allergy status to penicillin; Z88.8 Allergy status to other drugs, medicaments and biological substances; Z91.048 Other nonmedicinal substance allergy status
CPT/HCPCS: 99284; 93971

== ENCOUNTER 2023-12-18 18:15 | Emergency (ER) | payer OTHER, SELFPAY ==
[2023-12-18 18:16] VITALS: BMI 26.2
[2023-12-18 18:17] VITALS: BP 178/7
[2023-12-18 19:00] VITALS: BP 166/69
[2023-12-18 20:00] VITALS: BP 156/65
[2023-12-18 21:00] VITALS: BP 138/95
[2023-12-18] MEDS: NORCO 5/325 1 TABLET PO (22:54)
[2023-12-18] MEDS: TORADOL 30 MG IM (22:55)
--- NOTE | 2023-12-18 23:39 | ED.GENMED ---
History of Present Illness
General
Chief Complaint: Musculo-Skeletal Complaint
Source: patient, family (Daughter who is at bedside), ambulance crew and previous hospital records (Recent hospitalization 1 month ago for acute bronchitis. Most recent ED visit November 24 for evaluation of right leg bruising after sliding out of bed
2 weeks prior)
Exam Limitations: none
Time Seen by Provider: 12/18/23 22:07
Nursing documentation reviewed up to this point in time: agreed with
Travel History
Have you had any contact with someone who has COVID-19?: No
Do you have any symptoms of coronavirus? Fever > 100 degrees, chills, cough, shortness of breath, sore throat, loss of taste or smell, muscle aches, or headache?: No
History of Present Illness
History of Present Illness:
This is an 88-year-old woman who resides at home with her daughter. 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 She does receive
home physical therapy but is currently markedly limited in her ambulation and at this point is wheelchair-bound and requires assistance to stand and pivot when transferring from bed to wheelchair, bed to commode etc.
She is chronically maintained on [place] 1 tablet twice daily as well as 1 Aleve in the evening.
Tonight while daughter was assisting her to stand and pivot from bed to her bedside commode patient twisted and then sat down slowly on the commode and after sitting she developed moderate to severe pain left groin. She did not fall and daughter
does note that patient commonly does similar twisting of her upper body more so than pivoting and turning with her feet.
She denies back pain, no abdominal pain, no leg pain, no weakness nor numbness.
She was able to void uneventfully while sitting on the commode.
She arrives to the ED via EMS.
Since arrival she has had no pain, currently resting comfortably.
ED nurses have placed a pure wick catheter; patient voiding clear yellow urine.
Past History
Past History
ED Past Medical History: GERD, HTN, Seizures, Hypothyroidism, Psychiatric (Anxiety, Panic disorder) and Other (PMR, dementia, T12 compression fracture, diverticulitis, anemia, Migraines, Vertigo, )
ED Past Surgical History: Appendectomy, Orthopedic (Laminectomy, Left and right knee replacements, Left femur fracture,, Left hip replacement, Left elbow surgery, ), Tonsilectomy and Other (Fundoplication)
Social History
Tobacco: Non-smoker
Alcohol: None
Drug: None
Personal:
Living: with family
Family History
Family History: Other (Noncontributory)
Phy Exam
Physical Exam
Physical Exam:
GENERAL: 88-year-old woman appears her stated age, bright and alert, pleasant, appears in no acute distress. Daughter is accompanying.
EYE: pupils equal and reactive. anicteric. The head is normocephalic, atraumatic.
NECK: Supple, nontender, no meningismus, no significant adenopathy.
ENT: oral mucosa is moist. No rhinorrhea.
CARDIAC: Regular rate and rhythm. no murmur.
LUNGS: Clear breath sounds bilaterally, no acute respiratory distress, no wheezes/rales/rhonchi
ABDOMEN: Soft, nondistended, without focal tenderness, no r/g, no cvat. normoactive BS.
BACK: No midline bony tenderness. No palpable bony pelvic tenderness. No inguinal tenderness to palpation. No palpable masses nor adenopathy.
NEUROLOGICAL: Alert and oriented x3, no focal neuro deficits. Motor strength 5/5 bilateral upper extremities, 4/5 bilateral lower extremities. Gross sensation is intact.
SKIN: Warm and dry, normal color, skin intact. No rash.
MUSCULOSKELETAL: No C/C/E. peripheral pulses are full and equal b/l. No palpable tenderness. I am able to passively range left hip without difficulty and without pain. No leg length discrepancy.
PSYCH: Normal and appropriate interaction.
Course
Orders/Labs/Results
Orders:
Orders
12/18/23 21:06
Hip, Left 2-3 Views [CR Hip - LT w/wo Pel 2-3 Vw*] Urgent
Comment:
Reason For Exam: pain
Include a pelvis x-ray?: Yes
12/18/23 22:39
Hydrocodone 5/APAP 325 [[place] 5/325] 1 tablet PO NOW STA
Ketorolac [Toradol] 30 mg IM NOW STA
Vital Signs
Initial and Last Documented VS:
Initial Vital Signs
Temp Pulse Resp BP Pulse Ox
97.8 F 72 18 178/7 96
12/18/23 18:17 12/18/23 18:17 12/18/23 18:17 12/18/23 18:17 12/18/23 18:17
Last Documented Vital Signs
Temp Pulse Resp BP Pulse Ox
97.8 F 72 18 156/65 95
12/18/23 18:17 12/18/23 18:17 12/18/23 18:17 12/18/23 20:00 12/18/23 20:00
MDM/Problems Addressed
Differential Diagnosis Includes:
Concern for left inguinal strain, occult pelvic/pubic ramus fracture, occult hip fracture, prosthetic hip dislocation.
Left hip x-ray shows no dislocation, no evidence of fracture of the hip nor pelvis.
Will give her usual evening dose of [place] along with an IM dose of Toradol.
Will then plan to stand, pivot and transfer to a wheelchair assess for return of pain.
Chronic conditions affecting care: Neurological disorder and Other (Advanced DJD, chronic orthopedic pain. Chronic ambulatory dysfunction.)
*Radiology
Radiology exam reviewed: preliminary read by ED provider (Left hip x-ray shows no evidence of prosthetic dislocation, no evidence of periprosthetic fracture nor pelvic fracture.)
*Pulse Oximetry
Patient hypoxic: no
*Critical Care Note
Total Time (30-74mins, 75-104mins- exclusive of procedures): Not Applicable
Update Note
Update Note:
12/19/2023 0006 AM
Patient continues to feel well, has had no recurrent groin pain and has successfully stood, pivoted and set in a wheelchair without difficulty nor return of pain.
Will discharge to home to continue with home physical therapy, home health care.
Prompt follow-up with PCP.
ED Attending Note
-
Portions of this chart may have been created with voice recognition software.� Occasional wrong word or��sound alike� substitutions may have occurred due to the inherent limitations of voice recognition software.
Discharge Plan
Departure
Patient Disposition: Home (Routine Discharge)
Date of Disposition: 12/19/23
Time of Disposition: 00:02
Patient with high blood pressure during this ER visit?: No
Condition: Good
Discharge Problem:
acute left groin pain
Instructions: Groin Strain ED, Fall Prevention for Older Adults
Prescriptions:
No Action
hydrocodone-acetaminophen 5-325 mg tablet
1 tab PO BID
Patient Comments:
11/01/2023: LAST FILLED 10/10/23, 60 TABS FOR 15 DAYS FROM [facility]
naproxen sodium [Aleve] 220 mg Tablet
220 mg PO HS
duloxetine 30 mg Capsule,Delayed Release(Dr/Ec)
30 mg PO QDAY
prednisone 5 mg tablet
5 mg PO DAILY
levothyroxine 100 mcg tablet
100 mcg PO DAILY
divalproex 250 mg tablet extended release 24 hr
500 mg PO HS
cholecalciferol (vitamin D3) [Vitamin D3] 25 mcg (1,000 unit) Tablet
25 mcg PO DAILY
doxycycline hyclate 100 mg Capsule
100 mg PO Q12 3 Days Qty: 6 0RF
Referrals:
Mathew Barr IV, MD [Family Provider] - Call in 1-3 days for appt
Interventions
Interventions:
*Neglect/Abuse Screening Last Done: 12/18/23 18:17
ED- Fall Risk Assessment Last Done: 12/18/23 18:23
*ED COVID-19 Vaccine History Last Done: 12/18/23 18:17
ED-Musculoskeletal Assessment Last Done: 12/18/23 18:23
Discharge Date and Time
Print Language: ROMANIAN
[2023-12-19 00:21] VITALS: BP 134/71
== END 2023-12-19 00:23 | disposition home or self-care (01) ==
LOC: EMR 18:15
PROVIDERS: EMERGENCY PHYSICIAN Emergency Medicine; FAMILY PHYSICIAN Family Medicine
DX: R10.32 Left lower quadrant pain (principal); X50.1XXA Overexertion from prolonged static or awkward postures, initial encounter
CPT/HCPCS: 99284; 96372; 73502

== ENCOUNTER 2024-10-26 19:43 | Emergency (ER) | payer OTHER, SELFPAY ==
[2024-10-26 19:47] VITALS: BP 154/80
[2024-10-26 19:49] VITALS: BP 154/80
--- NOTE | 2024-10-26 19:49 | ED.GENMED ---
History of Present Illness
General
Chief Complaint: Seizure
Source: patient and ambulance crew
Time Seen by Provider: 10/26/24 19:48
History of Present Illness
History of Present Illness:
89-year-old female with past medical history of short-term memory disorder, seizure, polymyalgia rheumatica, hypertension, anxiety and panic disorder presenting to the emergency department via EMS after she reportedly had a witnessed seizure at her
assisted living facility earlier this evening, EMS reported that family stated patient had been complaining of some mild abdominal discomfort and nausea as well as appeared short of breath at the time of arrival. On arrival to the emergency
department patient is without any complaints. She is denying any headache, visual changes, focal weakness or numbness, chest pain or shortness of breath, abdominal pain, nausea, urinary symptoms or bowel changes. No reported fevers or infectious
symptoms. Patient lives with her . Social history noncontributory. Patient does reportedly take Depakote as part of her antiepileptic regimen.
Past History
Past History
ED Past Medical History: GERD, HTN, Seizures, Hypothyroidism, Psychiatric (Anxiety, Panic disorder) and Other (PMR, dementia, T12 compression fracture, diverticulitis, anemia, Migraines, Vertigo, )
ED Past Surgical History: Appendectomy, Orthopedic (Laminectomy, Left and right knee replacements, Left femur fracture,, Left hip replacement, Left elbow surgery, ), Tonsilectomy and Other (Fundoplication)
Social History
Tobacco: Non-smoker
Alcohol: None
Drug: None
Personal:
Living: with family
Family History
Family History: Other (Noncontributory)
Review of Systems
Review of Systems
All Other Systems: ROS reviewed and negative except as documented in HPI and ROS
Phy Exam
Physical Exam
Physical Exam:
GENERAL: Alert , in no apparent distress, answering questions appropriately, soft-spoken but pleasant
HEAD: NCAT
EYE: pupils equal and reactive, 4 mm bilateral
NECK: Supple
ENT: o/p clr, mmm.
CARDIAC: Regular rate and rhythm, systolic murmur .
LUNGS: Clear breath sounds bilaterally, no acute respiratory distress, no wheezes/rales/rhonchi
ABDOMEN: Soft, without focal tenderness, no r/g, no cvat
NEUROLOGICAL: Alert and oriented, no focal neuro deficits, COFFEY x 4, no observable speech complications
SKIN: Warm and dry, skin intact.
MUSCULOSKELETAL: No edema, well perfused.
PSYCH: Normal and appropriate interaction.
Scores
Heart Failure Risk
Heart Failure Risk Score: Not Applicable
Heart Score for Chest Pain Patients
STEMI patient?: Not applicable
Withdrawal Assessment of Alcohol
Withdrawal Assessment Completed?: Not applicable
Course
Orders/Labs/Results
Orders:
Orders
10/26/24 19:49
CT Head W/o Iv Contrast Urgent
Comment:
Reason For Exam: seizure
10/26/24 19:53
COVID-19 Antigen Urgent
Source: Nasal Swab
Complete Blood Count/With Diff Urgent
Comprehensive Metabolic Panel Urgent
Depakane Urgent
Influenza A+B Rapid Molecular Urgent
JOSE Source: Nasal Swab
Specimen Description:
Abnormal Lab Results
10/26/24
19:53
WBC 12.2 H 10^3/uL
(4.8-10.8)
MCH 31.8 H pg
(27.0-31.0)
MCHC 32.5 L g/dL
(33.0-37.0)
MPV 10.5 H fL
(7.4-10.4)
Abs Immat Gran (auto) 0.2 H 10^3/uL
(0-0.05)
Absolute Neuts (auto) 7.5 H 10^3/uL
(1.4-6.5)
Absolute Monos (auto) 1.1 H 10^3/uL
(0.1-0.6)
Immature Gran % 1.6 H %
(0-0.5)
BUN 38 H mg/dl
(7-17)
Glucose 137 H mg/dl
(70-99)
Total Protein 6.0 L g/dl
(6.3-8.2)
Valproic Acid 37.4 L ug/ml
(50.0-120.0)
10/26/24 19:53
10/26/24 19:53
Vital Signs
Initial and Last Documented VS:
Initial Vital Signs
BP
154/80
10/26/24 19:47
Last Documented Vital Signs
Temp Pulse Resp BP Pulse Ox
98.3 F 69 15 147/90 98
10/26/24 19:49 10/26/24 20:30 10/26/24 20:30 10/26/24 20:00 10/26/24 20:15
MDM/Problems Addressed
Differential Diagnosis Includes:
Seizure, syncope, intracranial bleeding, COVID/flu or other viral etiology, medication side effect, UTI
MDM/Problems Addressed:
89-year-old female presenting to the ER from [facility] for evaluation after she reportedly had a witnessed seizure at home. Patient arrives to the emergency department without any specific concerns. She is hemodynamically stable. Family
reportedly on the way to the emergency room. Will obtain labs including Depakote level and given patient's age will obtain a CT of the head. Patient otherwise currently stable and in no acute distress.
Chronic conditions affecting care: Neurological disorder
Acute Exacerbation and/or Progression of Chronic Illness: Neurological disorder
*Radiology
Radiology exam reviewed: radiology read reviewed (Unchanged from previous head CT, no acute findings)
*Pulse Oximetry
Patient hypoxic: no
*Critical Care Note
Total Time (30-74mins, 75-104mins- exclusive of procedures): Not Applicable
Data Reviewed
Review of Other/Old Records Reveals: Records, Radiology Studies and Discharge Summary
Comment
Comment:
Patient seen in August 2022 for reported change in mental status. They were unable to obtain MRI due to patient not being able to sit still, neurology felt patient was at risk for seizure disorder and started on that time. Family seem to be
against the possibility of Lewy body dementia as a diagnosis. It seemed at the time that it was overall unclear as to the source of patient's altered mental status at that time.
Patient Management
Social determinants of health affecting care: Living situation and Strong social support
Escalation/DeEscalation of care consider admission/obs:
Patient CT scan does not show any acute abnormalities. I reviewed all of the test results with patient's daughter. I offered for urinalysis to be obtained however patient's daughter does not wish for this test to be done. We did discuss the low
valproic acid level however given patient's seizure disorder is not fully confirmed to be a true diagnosis I am not going to make any changes to current dosing. Patient remains awake alert and oriented. She is without any concerns. Both patient
and daughter feel comfortable with her going home. Aware of return precautions to the ER.
ED Attending Note
-
Portions of this chart may have been created with voice recognition software.� Occasional wrong word or��sound alike� substitutions may have occurred due to the inherent limitations of voice recognition software.
Discharge Plan
Departure
Patient Disposition: Assisted Living
Date of Disposition: 10/26/24
Time of Disposition: 21:44
Patient with high blood pressure during this ER visit?: Yes
Discharge Problem:
Transient loss of consciousness
Instructions: Mild cognitive impairment
Prescriptions:
No Action
hydrocodone-acetaminophen 5-325 mg tablet
1 tab PO BID
Patient Comments:
11/01/2023: LAST FILLED 10/10/23, 60 TABS FOR 15 DAYS FROM [facility]
naproxen sodium [Aleve] 220 mg Tablet
220 mg PO HS
duloxetine 30 mg Capsule,Delayed Release(Dr/Ec)
30 mg PO QDAY
prednisone 5 mg tablet
5 mg PO DAILY
levothyroxine 100 mcg tablet
100 mcg PO DAILY
divalproex 250 mg tablet extended release 24 hr
500 mg PO HS
cholecalciferol (vitamin D3) [Vitamin D3] 25 mcg (1,000 unit) Tablet
25 mcg PO DAILY
doxycycline hyclate 100 mg Capsule
100 mg PO Q12 3 Days Qty: 6 0RF
Referrals:
Alber Kruse MD [Family Provider] -
Interventions
Interventions:
*General Assessment Last Done: 10/26/24 19:49
ED- Cardiac Assessment Last Done: 10/26/24 20:39
ED- Neurological Assessment Last Done: 10/26/24 20:39
ED- Pulmonary Assessment Last Done: 10/26/24 20:39
Discharge Date and Time
Print Language: BENGALI
[2024-10-26 20:00] VITALS: BP 147/90
[2024-10-26 20:14] LABS: % Basophils 0.5 % (0-2); % Eosinophils 3.6 % (0-6); % Immature Granulocytes 1.6 % (0-0.5); % Lymphocytes 24.4 % (20.5-51.1); % Monocytes 8.9 % (1.7-9.3); Absolute Basophils 0.1 10^3/uL (0-0.2); Absolute Eosinophils 0.4 10^3/uL (0-0.7); Absolute Immature Granulocytes 0.2 10^3/uL (0-0.05); Absolute Monocytes 1.1 10^3/uL (0.1-0.6); Absolute Neutrophils 7.5 10^3/uL (1.4-6.5); Hematocrit 42.2 % (37.0-47.0); Hemoglobin 13.7 g/dL (12.0-16.0); Mean Corp Hgb Conc. 32.5 g/dL (33.0-37.0); Mean Corpuscular Hgb 31.8 pg (27.0-31.0); Mean Corpuscular Volume 97.9 fL (81.0-99.0); Mean Platelet Volume 10.5 fL (7.4-10.4); Nucleated Red Blood Cells % 0 %; Platelet Count 161 10^3/uL (130-400); Red Blood Cell Count 4.31 10^6/uL (4.20-5.40); Red Cell Dist. Width 13.5 % (11.5-14.5); White Blood Cell Count 12.2 10^3/uL (4.8-10.8)
[2024-10-26 20:18] LABS: COVID-19 Antigen Negative (Negative)
[2024-10-26 20:32] LABS: ALT (SGPT) 13 U/L (0-35); AST (SGOT) 29 U/L (14-36); Albumin 3.5 g/dl (3.5-5.0); Alkaline Phosphatase 74 U/L (38-126); Blood Urea Nitrogen 38 mg/dl (7-17); Calcium 9.1 mg/dl (8.4-10.2); Carbon Dioxide 26 mmol/L (22-30); Chloride 101 mmol/L (98-107); Glucose 137 mg/dl (70-99); Potassium 3.7 mmol/L (3.5-5.1); Sodium 138 mmol/L (135-145); Total Bilirubin 0.8 mg/dl (0.2-1.3); eGFR > 60.00
[2024-10-26 20:36] LABS: Depakane 37.4 ug/ml (50.0-120.0)
== END 2024-10-27 00:45 ==
LOC: EMR 19:43
PROVIDERS: Physician Assistant Medical; EMERGENCY PHYSICIAN Emergency Medicine; FAMILY PHYSICIAN Family Medicine
DX: R55 Syncope and collapse (principal); E03.9 Hypothyroidism, unspecified; I10 Essential (primary) hypertension; M35.3 Polymyalgia rheumatica; K21.9 Gastro-esophageal reflux disease without esophagitis; F03.90 Unspecified dementia, unspecified severity, without behavioral disturbance, psychotic disturbance, mood disturbance, and anxiety; Z11.52 Encounter for screening for COVID-19
CPT/HCPCS: 99284; 70450; 80053; 80164; 85025; 87502; 87811

== ENCOUNTER 2025-06-11 08:28 | Inpatient (IN) | payer OTHER, SELFPAY ==
[2025-06-09] VITALS (8 sets, daily range): BP systolic 127–178; BP diastolic 59–131
[2025-06-09 12:17] LABS: Glucose - Point of Care 111 mg/dl (70-99)
--- NOTE | 2025-06-09 12:19 | CON.NEURO4 ---
Addendum entered and electronically signed by Jatinder Dubose MD 06/09/25 16:31:
Studies reviewed.
I have personally examined the patient. I reviewed and agree with the PHYSICIAN SCRIBE's Note.
My addenda:
Awake, interactive. No acute distress.
Speech reduced to being able to produce her own name and occasional short phrases.
Follows 1-step requests w/ difficulty. No tremor.
Extra-ocular movements grossly intact.
Facial movements full and symmetric. Hearing intact to normal conversational volume.
Normal UE movements bilaterally.
Neck: full ROM.
Chest: no dyspnea
Heart: no JVD
Ext: (-) Clubbing, (-) Cyanosis, (-) Edema
IMPRESSIONS/RECOMMENDATIONS:
Abrupt onset of left upper extremity weakness
Differential diagnosis includes acute ischemic stroke, TIA, cognitive dysfunction with the patient not a was able to follow the request of lifting the arm in a patient with severe dementia
Patient was not a candidate for mechanical thrombectomy due to severe dementia. It was not clear that the patient was a candidate for tenecteplase based on fluctuating symptoms. Absence of clot for anticoagulation also complicated the clinical
picture
Check valproic acid levels
Provide aspirin and clopidogrel if patient passes bedside swallow testing
Provide atorvastatin dependent on LDL levels
Check MRI brain for completeness
There are no medications that would improve or even significantly stabilize the patient's severe dementia
Rehabilitation evaluations and treatment
D/W patient / family / nursing
All questions answered.
Will continue to follow patient.
Original Note:
Documented by User: Natalia Osorio NP 06/09/25 14:32
Consultation - Neurology 4
-
CONSULTING PHYSICIAN: Jatinder Dubose MD
REFERRING PHYSICIAN: WILLIE/Dr. Henry
DICTATED BY: GLADIS Ortiz
DATE/TIME OF REQUEST: 06/09/25
DATE/TIME OF CONSULTATION: 06/09/25
Reason for Consultation: Stroke Alert
History of Present Illness:
This is an 89-year-old right-handed female who has presented to the hospital with report of left-sided weakness. Patient was previously evaluated by our inpatient Neurology service in 2022 for nonresponsiveness and expressive aphasia.
From previous evaluation by Dr. Dubose on 09/07/2022:
'This is a 87-year-old right-handed female who has presented to the hospital with report of a brief episode of nonresponsiveness followed by expressive aphasia hours later.
The patient received sedation for an MRI an is unable to respond to questions currently, this history is obtained from her daughter who is at the bedside.
The patient's daughter reports that the patient's was wheeling her on her rollator out of the bathroom to head to bed at 0230 on 09/06/22 when she stopped picking up her feet like she usually does, her head dropped, she started retching, and
then went unresponsive for a about 1-2 minutes before waking up. He reported that she seemed about back to normal and they went to bed. He reports throughout the night she was more restless than usual and moaning. Typically she is slightly restless
but does not usually moan. Around 0800 when they woke up, he noted she was able to speak fluently, but the words coming out were illogical. They proceeded to call EMS and she was brought to the ER.
The patient was diagnosed with dementia over 14 years ago. At baseline, her daughter reports the patient takes care of her own basic needs. She is confused, but easily reoriented. She sometimes takes awhile to respond to questions, but she has never
had fluent yet inappropriate conversation like this current episode. She reports that she used to have changes in mental status, issues with balance, and falls, but this has gotten much better starting a year ago when all of her medications were
adjusted and the doses were reduced. Her last fall was in December 2021. She has not driven in over 10 years and her has taken care of the finances for 20 years now.
She is followed by neurologist Dr. Patel at [place], she saw him last in July 2022 and there were 'no red flags.' Her MMSE at that appointment was 22/30. Also, a neuropsych evaluation in 2008 demonstrated mild-moderate dementia with frontal
lobe impairment. She has been on sinemet in the past but Dr. Patel noted it was unlikely that she has parkinson's and he discontinued this medication.
She also has a history of migraines since she was a teenager, associated with photo/phonophobia. She gets 1-2 migraines about every six months, and gets smaller headaches occasionally. She is using medical CBD to help with her headaches.'
Per the patient's spouse at bedside, he last saw her at her baseline last evening (06/08/25). This morning (06/09/25), he came to see her around 0830 while she was being fed breakfast and he noted that her left side was not moving. CT head and CTA
head/neck were obtained on arrival and are negative for any acute abnormalities. NIHSS is 8. She is not a candidate for TNK/IAT due to being outside of the time window, no LVO. Patient currently offers no complaints. She is not taking any blood
thinning medications. Her spouse reports that she is still taking Depakote for seizures and has not had a seizure for about two years.
Past Medical History: Dementia, migraines, HTN, hypothyroidism, PMR, GERD, anxiety, depression, panic attacks, falls, compression fracture T12, vertigo, restless legs syndrome
Surgical History: fundoplication, appendectomy, laminectomy 1994, cataracts, B/L TKR, L THR, ERCP, L elbow surgery
Family History: Reviewed and noncontributory.
Social History: She lives at [facility] with her . Denies alcohol, tobacco, or illicit drug use.
Allergies: Penicillins, adhesive tape, anesthetics.
Home Medications: See below.
Review of Symptoms:
Per the HPI. I am unable to obtain a complete review of systems�because of patient's inability to provide history.
Physical Exam:
The patient is afebrile, abdomen is nondistended, breathing is unlabored, skin is warm and dry, no edema.
NIH Stroke Scale:
I performed the NIH stroke scale on the patient on 06/09/25 at 1230. The patient scored 8 points on the NIH stroke scale assessment, which were assigned as follows: See below.
Neurologic Examination:
The patient is awake, alert and oriented x 1. She is able to follow one-step commands and answer some questions appropriately. There is mild aphasia. No dysarthria. On cranial nerve assessment, pupils are 3 mm bilateral, round and reactive to light
and accommodation. Visual holt are full. Extraocular movements are intact. Facial sensations are intact and bilaterally symmetrical, there is no facial asymmetry. Hearing is intact bilaterally to normal conversation volume. Tongue palate and
uvula are midline. Motor strengths are 5/5 right upper and lower extremities, 3/5 left upper, and 3/5 left lower extremities on medical research [place] scale. There is drift in the LUE and LLE. No involuntary movement noted. Deep tendon reflexes
are 2+ bilateral upper and lower extremities and Babinski is absent bilaterally. There is left-sided neglect, unable to answer double simultaneous questions due to aphasia. Coordination is intact by finger to nose in the RUE only.
Lab Results: See below.
Neuro Imaging:
1. CT Head 06/09/25: No evidence of acute intracranial abnormality. Small focus of decreased density within the right thalamus, which is likely an old infarct. ASPECT score: 10.
2. CTA head/neck 06/09/25: No evidence for hemodynamically significant stenosis of the common carotid arteries, carotid bulbs, or proximal internal carotid arteries bilaterally. No significant narrowing involving the vertebral or basilar arteries.
Diffuse luminal irregularity of the posterior cerebral arteries, left greater than right, with moderate multifocal stenoses involving the distal left posterior cerebral arteries.
Differentials for the patient's presentation include:
1. Left-sided weakness/neglect; etiology is likely an acute/subacute right hemisphere ischemic stroke.
2. History of seizures, taking valproic acid.
3. Advanced dementia.
Patient has the following risk factors for their symptoms: Age
IV Tenecteplase/IAT candidacy: She is not a candidate for TNK/IAT due to being outside of the time window, no LVO.
Recommendations:
-Provide a loading dose of DAPT with aspirin and clopidogrel if passes swallow eval; if fails swallow eval, provide full dose rectal aspirin instead.
-Permissive hypertension, SBP<220, DBP<120 until 06/10/25, then goal normotension.
-MRI brain noncontrast pending.
-Routine EEG pending.
-Valproic acid level pending.
-LDL goal <70. Lipid panel is pending. Initiate atorvastatin 40mg daily.
-Goal normoglycemia, hbA1c is pending.
-PT/OT/ST evaluations.
-NIHSS and neurological checks per unit guidelines.
-Provide family with a stroke education packet.
-DVT prophylaxis.
Discussed patient care with: Dr. Dubose, the patient
Vital Signs and Labs
-
Vital Signs and Labs:
Vital Signs
Pulse Resp BP Pulse Ox
73 20 151/131 95
06/09/25 12:20 06/09/25 12:20 06/09/25 12:20 06/09/25 12:25
Medications
-
Home Medications
�Medication �Instructions �Recorded
duloxetine 30 mg capsule,delayed 30 mg PO DAILY Neurological 09/06/22
release Condition
levothyroxine 100 mcg tablet 100 mcg PO DAILY hypothyroidism 11/01/23
prednisone 5 mg tablet 5 mg PO DAILY polymyalgia 11/01/23
rheumatica
acetaminophen 500 mg/15 mL oral 1,000 mg PO Q8HPRN PRN mild pain 06/09/25
liquid
bisacodyl 10 mg rectal suppository 10 mg VA DAILY PRN constipation 06/09/25
celecoxib 200 mg capsule (Celebrex) 200 mg PO HS 06/09/25
divalproex 125 mg capsule,delayed 125 mg PO QID 06/09/25
release sprinkle (Depakote
Sprinkles)
magnesium hydroxide 400 mg/5 mL 15 ml PO DAILY PRN constipation 06/09/25
oral suspension (Milk of Magnesia)
methyl salicylate 30 %-menthol 10 1 applic topical HS left elbow pain 06/09/25
% topical cream (Icy Hot)
multivitamin 1 tab PO DAILY 06/09/25
sodium phosphates 19 gram-7 118 ml VA DAILY PRN constipation 06/09/25
gram/118 mL enema (Fleet Enema)
NIH Stroke Score
Subsequent NIH Scale
Date of Subsequent NIH Scale: 06/09/25
Time of Subsequent NIH Scale: 12:30
NIH Stroke Score
Level of Consciousness: 0 - Alert
LOC Questions: 2-Neither correct
LOC Commands: 1-Performs one correctly
Best Horizontal Gaze: 0-Normal
Visual Holt: 0=Normal, no visual loss
Facial Palsy: 0=Normal, symmetrical
Motor - Right Arm: 0=No drift 10 seconds
Motor - Left Arm: 2=Partial vs. gravity
Motor - Right Le-No drift 5 seconds
Motor - Left Le-Drift < 5 seconds
Limb Ataxia: UN-Amputation/jointfusion
Sensation: 0-Normal
Best Language: 1-Mild aphasia
Dysarthria: 0-Normal
Extinction and Inattention: 1-Sensory inattention
NIH Total Score:: 8
Modified Dickenson (mRS) Score
Modified Dickenson Scale (mRS): Moderately severe disability. Unable to attend to bodily needs/walk.
Score: 4
Alteplase Contraindication
Inclusion and Exclusion criteria reviewed: Yes
Reasons for NON-Tx with Thrombolytics ABSOLUTE Exclusions: Greater than 4.5 hrs from onset of sxs

Documented by User: Jatinder Dubose MD 06/09/25 15:02
NIH Stroke Score
NIH Stroke Score
NIH Total Score:: 8
Modified Dickenson (mRS) Score
Score: 4
--- NOTE | 2025-06-09 12:22 | ED.CVA ---
History of Present Illness
General
Chief Complaint: CVA/TIA Symptoms
Source: patient
Exam Limitations: none
Time Seen by Provider: 06/09/25 12:14
Onset of Stroke Symptoms
Onset of symptoms known: Yes
Date of onset of symptoms: 06/09/25
History of Present Illness
History of Present Illness:
See MDM
Past History
Past History
ED Past Medical History: GERD, HTN, Seizures, Hypothyroidism, Psychiatric (Anxiety, Panic disorder) and Other (PMR, dementia, T12 compression fracture, diverticulitis, anemia, Migraines, Vertigo, )
ED Past Surgical History: Appendectomy, Orthopedic (Laminectomy, Left and right knee replacements, Left femur fracture,, Left hip replacement, Left elbow surgery, ), Tonsilectomy and Other (Fundoplication)
Social History
Tobacco: Non-smoker
Alcohol: None
Drug: None
Personal:
Living: with family
Family History
Family History: Other (Noncontributory)
Phy Exam
Physical Exam
Physical Exam:
See MDM
Scores
NIH Stroke Score
Level of Consciousness: 0 - Alert
LOC Questions: 1-Answers one correctly
LOC Commands: 1-Performs one correctly
Best Horizontal Gaze: 0-Normal
Visual Holt: 0=Normal, no visual loss
Facial Palsy: 1=Minor paralysis
Motor - Right Arm: 0=No drift 10 seconds
Motor - Left Arm: 1=Drift < 10 seconds
Motor - Right Le-No drift 5 seconds
Motor - Left Le-Partial vs. gravity
Limb Ataxia: 0-Absent
Sensation: 0-Normal
Best Language: 1-Mild aphasia
Dysarthria: 0-Normal
Extinction and Inattention: 0-No abnormality
NIH Total Score:: 7
Course
Orders/Labs/Results
Orders:
Orders
06/09/25 12:14
Electrocardiogram (*1) Stat
Reason for Study: Other
Other Reason for Exam: neuro symptoms
CT HEAD STROKE ALERT W/o Cont Urgent
Comment:
Reason For Exam: left side weakness
CT HEAD/NECK ANG STROKE ALERT Urgent
Comment:
Reason For Exam: left side weakness
NEUROLOGY CONSULT Urgent
Consulting Provider: Jatinder Dubose
Was physician already notified: Yes
Cardiac Monitoring- Treatment ONCE
EKG- Treatment ONCE
06/09/25 12:18
Complete Blood Count/With Diff Urgent
Comprehensive Metabolic Panel Urgent
PTT Urgent
Prothrombin Time Urgent
Troponin I Urgent
06/09/25 12:45
Speech Screening from Hossein Routine
06/09/25 12:49
Aspirin Chewable [Low Strength Aspirin] 324 mg PO NOW STA
Clopidogrel Bisulfate [Plavix] 300 mg PO NOW STA
06/09/25 12:53
EEG Routine Routine
Reason for Exam: change in mental status, seizure hx
Abnormal Lab Results
06/09/25 06/09/25
12:17 12:18
Absolute Monos (auto) 0.9 H 10^3/uL
(0.1-0.6)
Monocytes % 10.6 H %
(1.7-9.3)
Eosinophils % 6.2 H %
(0-6)
POC Glucose 111 H mg/dl
(70-99)
06/09/25 12:18
Vital Signs
Initial and Last Documented VS:
Initial Vital Signs
Pulse Resp BP Pulse Ox
73 20 151/131 95
06/09/25 12:20 06/09/25 12:20 06/09/25 12:20 06/09/25 12:20
Last Documented Vital Signs
Pulse Resp BP Pulse Ox
73 20 151/131 95
06/09/25 12:20 06/09/25 12:20 06/09/25 12:20 06/09/25 12:25
MDM/Problems Addressed
Differential Diagnosis Includes:
Note:
CHIEF COMPLAINT(S)
Left-sided facial droop and paralysis.
HISTORY OF PRESENT ILLNESS
The patient is a 89-year-old female with an acute onset of left-sided facial droop and inability to registered route associate with the left hand noted approximately one and a half to two hours prior to evaluation. According to her , this episode was observed when
he checked on her, and it is uncertain when she was last at her normal baseline. Upon questioning, the patient reported that she felt normal when she woke up but does not recall the specific time. Additionally, she is experiencing difficulty moving
the left side of her body and displays some expressive aphasia. There is no mention of blood thinners in her medication history. Prehospital stroke alert called. Patient was met by myself and neurology.
ADDITIONAL HISTORY OBTAINED FROM SOURCE OTHER THAN PATIENT
Per the patient�s , the patient was found with these symptoms an hour and a half to two hours ago, but the exact time of her last normal state is unknown.
PHYSICAL EXAM
General: Alert, no acute distress.
Skin: Warm, dry.
Head: Normocephalic, atraumatic
Neck: Appears supple, trachea midline.
Eyes, Ears, Nose, Mouth, and Throat: Moist mucous membranes
Cardiovascular: No signs of cyanosis. Regular rate and rhythm
Respiratory: Respirations are non-labored.
Abdomen: Non-distended
Musculoskeletal: No deformities
Neurological: Left arm weakness noted. Left leg weakness noted. Mild aphasia with facial droop
Psychiatric: Cooperative, appropriate mood and affect.
PLAN
- Initiate urgent neuroimaging to evaluate for potential stroke, specifically a computed tomography (CT) scan of the head.
DIFFERENTIAL DIAGNOSIS
The Differential Diagnosis includes, in no particular order and is not limited to:
- Ischemic stroke
- Hemorrhagic stroke
- Transient ischemic attack (TIA)
- Brain tumor
- Seizure
- Migraine with aura
- Wayne�s palsy
- Multiple sclerosis
- Encephalitis
- Intracranial hemorrhage
SUMMARY OF ENCOUNTER
The patient was seen in the emergency department for a sudden onset of left-sided facial droop and paralysis. Given the acute presentation, concern for a cerebrovascular accident (CVA) guided immediate medical management with an emphasis on
obtaining neuroimaging. The history obtained from the and physical examination findings were consistent with potential stroke symptoms, prompting urgent interventions.
DISPOSITION
Pending diagnostic imaging results to aid in determining further management.
MEDICAL DECISION MAKING
- Number and Complexity of Problems Addressed:
- Left-sided facial droop, paralysis, and expressive aphasia suggestive of acute neurological event.
- Data:
- Category 1: CT scan of the head ordered to evaluate for stroke.
- Risk:
- High due to the potential for a cerebrovascular event and the age of the patient, necessitating prompt imaging and possible intervention depending on the final diagnosis.
DIAGNOSIS
- Suspected Ischemic Stroke (ICD-10: I63.9)
06/09/25 - 12:47
Patient exhibits extreme variability in neurologic exam; intermittent ability to raise left hand and distractibility noted. Neurology advises against TNK administration. Initiate loading with aspirin and Plavix.
My independent EKG interpretation is:
- Rhythm: Sinus rhythm with premature atrial complexes
- Heart Rate: 71 beats per minute
- [place]: Normal axis
- ST Segment: No ST elevation
SUMMARY OF ENCOUNTER
The patient was seen in the emergency department due to an acute onset of left-sided facial droop and paralysis suggesting a cerebrovascular accident. Given the age of the patient and severity of symptoms, urgent medical management was initiated.
Neurology was consulted, and due to the variability and uncertainty in the timeline, TNK was not administered. The patient was started on aspirin and clopidogrel (Plavix) as a precautionary measure. Plans were made for admission for further
evaluation and stroke workup.
DISPOSITION
Admit for further stroke workup.
MANAGEMENT OF THE PATIENTS CARE WAS DISCUSSED WITH
Neurology was consulted to discuss the management of the suspected stroke.
PLAN
The plan involves immediate admission for further stroke evaluation, including additional imaging and neurologic assessment. The stroke team will further manage and determine the necessity of any additional interventions.
INDEPENDENT REVIEW OF LABS AND INTERPRETATION OF TESTS
My independent EKG interpretation is: Rhythm: Sinus rhythm with premature atrial complexes; Heart Rate: 71 beats per minute; [place]: Normal axis; ST Segment: No ST elevation.
MEDICATION RECONCILIATION
Aspirin and clopidogrel (Plavix) were administered for stroke prophylaxis.
MEDICAL DECISION MAKING
- Number and Complexity of Problems Addressed: Chronic conditions affecting care; Differential diagnosis includes ischemic stroke, hemorrhagic stroke, transient ischemic attack (TIA), brain tumor, seizure, migraine with aura, Wayne�s palsy, multiple
sclerosis, encephalitis, and intracranial hemorrhage.
- Data:
- Category 1: CT of the head was ordered and is pending evaluation.
- Category 2: Clinical information was obtained from an independent historian, the patients , who reported on the acute change in her condition.
- Risk: High due to the acute presentation of potential cerebrovascular accident, necessitating immediate imaging and management.
DIAGNOSIS
Suspected Ischemic Stroke (ICD-10: I63.9)
*Pulse Oximetry
SaO2: 95
Oxygen Mode of Delivery: Room air
Patient hypoxic: no
*Critical Care Note
Total Time (30-74mins, 75-104mins- exclusive of procedures): 33 min
comment:
The high probability of a clinically significant, sudden or life threatening deterioration of the Neurovascular system(s) required my full and direct attention, intervention and personal management. The aggregate critical care time was 33 minutes.
This time is in addition to time spent performing reported procedures but includes the following:
[x] Data Review and interpretation
[x] Patient assessment and monitoring of vital signs
[x] Documentation
[x] Medication orders and management
ED Attending Note
-
Portions of this chart may have been created with voice recognition software.� Occasional wrong word or��sound alike� substitutions may have occurred due to the inherent limitations of voice recognition software.
Discharge Plan
Departure
Patient Disposition: Admit
Date of Disposition: 06/09/25
Time of Disposition: 12:49
Admit to: Telemetry
Presentation/result/management discussed w/ accepting MD/DO: Hospitalist
Discharge Problem:
Acute CVA (cerebrovascular accident)
Prescriptions:
No Action
duloxetine 30 mg Capsule,Delayed Release(Dr/Ec)
30 mg PO DAILY
prednisone 5 mg tablet
5 mg PO DAILY
levothyroxine 100 mcg tablet
100 mcg PO DAILY
multivitamin Tablet
1 tab PO DAILY
celecoxib [Celebrex] 200 mg Capsule
200 mg PO HS
magnesium hydroxide [Milk of Magnesia] 400 mg/5 mL Suspension
15 ml PO DAILY PRN (Reason: constipation)
bisacodyl 10 mg Suppository
10 mg CO DAILY PRN (Reason: constipation)
Fleet Enema 19-7 gram/118 mL Enema
118 ml CO DAILY PRN (Reason: constipation)
acetaminophen [Tylenol Extra Strength] 500 mg/15 mL Liquid
1,000 mg PO Q8HPRN PRN (Reason: mild pain)
divalproex [Depakote Sprinkles] 125 mg Capsule, Delayed Rel Sprinkle
125 mg PO QID
Icy Hot 30-10 % Cream
1 applic TOPICAL HS
Referrals:
Alber Kruse MD [Family Provider, Family Practice]
Interventions
Interventions:
*Risk Screen - Suicide Last Done: 06/09/25 12:13
*General Assessment Last Done: 06/09/25 12:13
*Neglect/Abuse Screening Last Done: 06/09/25 12:13
ED Swallowing Screen Last Done: 06/09/25 12:42
Discharge Date and Time
Print Language: TURKISH
[2025-06-09 12:33] LABS: Hematocrit 41.4 % (37.0-47.0); Hemoglobin 13.8 g/dL (12.0-16.0); Mean Corp Hgb Conc. 33.3 g/dL (33.0-37.0); Mean Corpuscular Volume 91.0 fL (81.0-99.0); Nucleated Red Blood Cells % 0 %; Platelet Count 137 10^3/uL (130-400); Red Cell Dist. Width 13.1 % (11.5-14.5)
[2025-06-09 12:36] LABS: INR 0.94; PT 12.9 Sec (11.4-14.6)
[2025-06-09 12:37] LABS: APTT 28.6 Sec (23.4-35.0)
[2025-06-09 12:50] LABS: Troponin I 0.023 ng/ml
--- NOTE | 2025-06-09 12:53 | HPS.HSE ---
Addendum entered and electronically signed by Valentin Calles MD 06/09/25 14:38:
This is an addendum to H&P written by Kizzy Gill on 06/09/2025. �Patient seen and examined independently with [employer].
89-year-old female past medical history of questionable seizure on divalproex, chronic slurred speech, dementia, polymyalgia rheumatica, hypothyroidism, chronic pain, anxiety, migraines, chronic dysphagia presenting with left arm weakness noticed
this morning. �Last known to be normal last night.
Has chronic dysphagia and eats chopped food and can take meds usually.�
Her prior seizure was a syncopal episode and questionably a seizure.
Vital signs unremarkable. �Noticed to have significant left-sided facial droop in ER.
Labs pending.
CT head shows no evidence of acute intracranial abnormality. �Small focus of decreased density within the right thalamus likely old infarct. �CTA head and neck shows no hemodynamically significant stenosis of the common carotid arteries, carotid
bulbs or proximal intra carotid arteries bilaterally. �No significant narrowing involving the vertebrobasilar arteries. �Diffuse luminal irregularity of the posterior cerebral arteries left greater than right with moderate multifocal stenosis
involving the distal left posterior cerebral arteries.
Patient with concern for acute CVA. �TNK was deferred due to unclear onset of symptoms. �Aspirin and Plavix recommended however patient with swallowing difficulty. �Start rectal aspirin. �Check A1c and lipid panel, check speech evaluation, PT OT,
MRI brain, neurology following. EEG pending.�Converted IV medications to oral due to dysphagia from stroke.
Original Note:
Family Physician
-
Family Physician: Alber Kruse MD
Chief Complaint
-
Left arm weakness
History of Present Illness
89-year-old female with PMH for PMR, chronic pain, hypothyroidism presented to us with left arm weakness. history obtained from family. she was last seen normal last night. patient is not ambulatory at baseline. denied ESPINO, dizzy or syncope. denied
fever, chills, chest pain, sob.denied abdominal pain,n,v,d. denied dsuria or hematuria.
upon arrival she was noted to have left sided facial droop and left arm weakness. asa and Plavix ordered.
patient only took plavix, coughing with asa. NE asa ordered in ER
admitting for further management.
Medical History
Past Medical History
Past Medical History: Reports Other
Additional Past Medical History:
Anxiety, hypertension, panic attacks, depression
Past Surgical History: Reports Other
Additional Past Surgical History:
Tonsillectomy, laparotomy, appendectomy, laminectomy, cataract surgery, right TKA, left TKA
Social History
Tobacco: Non-smoker
Alcohol: None
Drug: None
Personal:
Living: With Family
Family History
Family History: Other
Allergies / Home Medications
Allergies reflects when Allergies were last updated in [employer].
Home Medications with original date entered in [employer]
Allergy/Medication List:
Allergies
Allergy/AdvReac Type Severity Reaction Status Date / Time
adhesive tape Allergy Rash Verified 06/09/25 12:17
Anesthetics - Amide Type - Allergy gets Verified 06/09/25 12:17
Select A nervous
Penicillins Allergy Hives Verified 06/09/25 12:17
Home Medications
duloxetine 30 mg capsule,delayed release 30 mg PO DAILY Neurological Condition 09/06/22
levothyroxine 100 mcg tablet 100 mcg PO DAILY hypothyroidism 11/01/23
prednisone 5 mg tablet 5 mg PO DAILY polymyalgia rheumatica 11/01/23
acetaminophen 500 mg/15 mL oral liquid 1,000 mg PO Q8HPRN PRN mild pain 06/09/25
bisacodyl 10 mg rectal suppository 10 mg NE DAILY PRN constipation 06/09/25
celecoxib 200 mg capsule (Celebrex) 200 mg PO HS 06/09/25
divalproex 125 mg capsule,delayed release sprinkle (Depakote Sprinkles) 125 mg PO QID 06/09/25
magnesium hydroxide 400 mg/5 mL oral suspension (Milk of Magnesia) 15 ml PO DAILY PRN constipation 06/09/25
methyl salicylate 30 %-menthol 10 % topical cream (Icy Hot) 1 applic topical HS left elbow pain 06/09/25
multivitamin 1 tab PO DAILY 06/09/25
sodium phosphates 19 gram-7 gram/118 mL enema (Fleet Enema) 118 ml NE DAILY PRN constipation 06/09/25
Review of Systems
-
Constitutional: Reports No Symptoms
EENT: Reports No Symptoms
Respiratory: Reports No Symptoms
Cardiac: Reports No Symptoms
Abdomen/GI: Reports No Symptoms
: Reports No Symptoms
Musculoskeletal: Reports No Symptoms
Skin: Reports No Symptoms
Neurological: Reports Weakness and Other (Expressive aphasia, left-sided weakness)
Endocrine: Reports No Symptoms
Hematologic/Lymphatic: Reports No Symptoms
Psych: Reports No Symptoms
Physical Exam
Vital Signs
Vital Signs
Pulse Resp BP Pulse Ox
73 20 151/131 95
06/09/25 12:20 06/09/25 12:20 06/09/25 12:20 06/09/25 12:25
Physical Exam
General: Well Developed, Well Nourished and No Apparent Distress
HEENT: NormoCephalic, Moist mucous membranes and Atraumatic
Respiratory: Clear
Cardiac: S1/S2 and Regular Rhythm; No Murmur or Rub
GI: Soft, Non Tender, Non Distended and Normal Bowel Sounds; No Organomegaly
Rectal: Deferred by Provider
Musculoskeletal: No Clubbing, No Cyanosis and No Edema
Skin: No Rash
Neuro: Slurred Speech and Facial Droop
Laboratory Results
-
06/09/25 12:18
Laboratory Results
PT 12.9 Sec (11.4-14.6) 06/09/25 12:18
INR 0.94 06/09/25 12:18
APTT 28.6 Sec (23.4-35.0) 06/09/25 12:18
Troponin I 0.023 ng/ml 06/09/25 12:18
Data Reviewed
-
CT Scan: Report Reviewed by me
Lab Data: Labs Reviewed by me
Impression/Plan
-
Concern for TIA
- Aspirin NE
- Obtain A1c, lipid profile
- PT OT
- Speech consult
-Obtain MRI
- Neurology following patient
- Head neck CTA with no evidence of significant stenosis of the common carotid arteries, carotid bulbs, or proximal internal carotid arteries bilaterally.No significant narrowing involving the vertebral or basilar arteries.Diffuse luminal
irregularity of the posterior cerebral arteries, left greater than right, with moderate multifocal stenoses involving the distal left posterior cerebral arteries.If there remains high clinical concern for acute to subacute infarction and further
imaging evaluation is desired, consideration for MRI of the brain, if there are no contraindications.
- Head CT with impression of no evidence of acute intracranial abnormality. Small focus of decreased density within the right thalamus which is likely an old infract
# History for seizure
- Depakote iv continued
#PMR
�- continue methylprednisolone
#Chronic Pain Syndrome
�- resume cymbtalta once patient able to tolerate po
#Hypothyroidism
�- hold levothyroxine
#DVT Prophylaxis:�SCD
Code Status:� CPR, no intubation
Hold oral meds until evaluated to speech and able to swallow.
[2025-06-09] MEDS: PLAVIX 300 MG PO (12:58)
--- NOTE | 2025-06-09 13:12 | EDRN ---
pt. passed swallow eval with water, was able to swallow small bites of applesauce with plavix. When trying to get down the aspirin with applesauce, pt began coughing, spitting up applesauce. hospitalist at bedside and aware of pt being unable to
take aspirin. Stated to keep NPO until speech sees her.
--- NOTE | 2025-06-09 13:26 | EDCM ---
CM reviewed chart and met with patient, and son Derek at ED bedside
Lives in [facility] as LTC resident
Spoke with Mary nurse at [facility]
PLOF : Needs assistance with all of her ADLs. Sit to pivot to w/c
Plan to return back there
When ready , report can be sent to [facility] : room 204

fax number [phone] Alber Kruse
RX plan yes
Pharmacy [facility]
DCP is return back to [facility] after PT eval
CM will continue to follow up for dcp needs
[2025-06-09 13:38] LABS: ALT (SGPT) 12 U/L (0-35); AST (SGOT) 24 U/L (14-36); Albumin 3.0 g/dl (3.5-5.0); Alkaline Phosphatase 41 U/L (38-126); Blood Urea Nitrogen 25 mg/dl (7-17); Calcium 8.9 mg/dl (8.4-10.2); Carbon Dioxide 29 mmol/L (22-30); Chloride 106 mmol/L (98-107); Glucose 114 mg/dl (70-99); Potassium 3.7 mmol/L (3.5-5.1); Sodium 135 mmol/L (135-145); Total Protein 5.7 g/dl (6.3-8.2); eGFR > 60.00
[2025-06-09] MEDS: ASPIRIN 300 MG RECTAL (14:14)
--- NOTE | 2025-06-09 15:37 | PTOTSP ---
Speech Therapy Evaluation:
Pt with chronic risk factors of dysphagia including hx of GERD and Dementia, acutely compounded by concern for CVA. Son present for evaluation who reported intermittent coughing with PO intake for over 6 months now, however has denied any pulmonary
complication for this. Pt demonstrated 1x cough with thin liquids, however no prior or subsequent s/sx of aspiration.
Given chronicity of symptoms without pulmonary complication, pt on room air, WBC WNL, and no chest imaging completed thus far, recommend trial of diet listed below. Low threshold to d/c oral diet if worsening in respiratory status or chest imaging
shows pneumonia.
Recommend:
1. Trial of IDDSI 6 (soft and bite sized solids) and thin liquids
2. Medications crushed in puree
3. Close supervision with PO intake
4. Low tolerance to d/c oral diet and for instrumental assessment if worsening in respiratory status/chest imaging
5. DENTAL SCHEDULER to follow to monitor tolerance of diet, determine if pt would benefit from instrumental assessment, and complete further language assessment as indicated.
--- NOTE | 2025-06-09 16:06 | EEG.RPT ---
Electroencephalogram Report
Recording
Date of EE06/09/25
Type of EEG: Routine
Length of EEG recordin minutes
Done with Video Recording: Yes
Patient Status: Inpatient
Recording Conditions: Awake and Drowsy
Hyperventilation Performed: No
Photic Stimulation Performed: Yes
Report
LESS THAN 1 HOUR EEG REPORT
GREATER THAN 1 HOUR EEG INTERPRETATION:
Moderately abnormal EEG for age in wakefulness through drowsiness due to diffuse bihemispheric slowing even for age and frontally predominant triphasic waves.
CLINICAL CORRELATION:
Although normative values have not been established for a person of this advanced age, this study was suggestive of diffuse cortical dysfunction without focal abnormality which may be metabolic in origin. No clear seizure activity was recorded.
Clinical correlation is advised.
METHODS:
A 21 channel digitized electroencephalogram (EEG) was performed. The 10/20 international system of electrode placement was used with ECG and lateral/vertical eye movements recorded. Video was recorded. Persyst quantitative EEG analysis was performed.
QUALITY OF STUDY:
Fair
ELECTROENCEPHALOGRAPHER IMPRESSION(S):
Background
There was a medium amplitude poorly organized anterior-posterior voltage gradient of theta activity at maximum
There were no significant asymmetries of background activity noted.
Sleep
Drowsiness present
Photic Stimulation
Failed to activate the record.
Abnormal EEG Activity
Frequently seen were bursts of frontally predominant generalizing triphasic waves at times in trains of up to 3, typically 1 second.
ECG
Normal sinus rhythm
[2025-06-09] MEDS: DEPACON 51.25 MG IV (18:43)
[2025-06-09 19:02] LABS: Depakane 34.9 ug/ml (50.0-120.0)
[2025-06-10] VITALS (8 sets, daily range): BP systolic 135–156; BP diastolic 61–81; O2SAT 94
[2025-06-10] MEDS: DEPACON 51.25 MG IV ×5 (00:38→23:00)
[2025-06-10 08:11] LABS: Glycohemoglobin (HgbA1c) 5.0 % (4.0-5.6)
[2025-06-10 08:19] LABS: Hematocrit 40.9 % (37.0-47.0); Hemoglobin 13.7 g/dL (12.0-16.0); Mean Corp Hgb Conc. 33.5 g/dL (33.0-37.0); Mean Corpuscular Volume 90.5 fL (81.0-99.0); Platelet Count 125 10^3/uL (130-400); Red Cell Dist. Width 12.7 % (11.5-14.5)
[2025-06-10 08:21] LABS: Blood Urea Nitrogen 20 mg/dl (7-17); Calcium 8.7 mg/dl (8.4-10.2); Carbon Dioxide 31 mmol/L (22-30); Chloride 106 mmol/L (98-107); Glucose 81 mg/dl (70-99); HDL Cholesterol 56 mg/dl; LDL Cholesterol, Calculated 94 mg/dl; Potassium 3.8 mmol/L (3.5-5.1); Sodium 138 mmol/L (135-145); Very Low Density Lipoprotein 13 mg/dl (0-30); eGFR > 60.00
--- NOTE | 2025-06-10 08:44 | W.PN.HOSP.TC ---
Today's Communication/Plan
-
MRI
Neuro evaluation
await EEG read
PT/OT/ST
continue rectal ASA
Assessment / Plan
Assessment / Plan
Assessment:
concern for acute CVA
- continue rectal ASA
- Plavix if passes speech
- statin if passes speech
- A1c/Lipids
- CT head negative for acute pathology
- MRI pending
- CTA: No evidence for hemodynamically significant stenosis of the common carotid arteries, carotid bulbs, or proximal internal carotid arteries bilaterally. No significant narrowing involving the vertebral or basilar arteries. Diffuse luminal
irregularity of the posterior cerebral arteries, left greater than right, with moderate multifocal stenoses involving the distal left posterior cerebral arteries.
- Neuro evaluation
- PT/OT/ST
Hx of seizure
- on Depakote sprinkles - continue IV here pending ST eval
- EEG pending
Moderate on Echo
- OP Cards followup
Hx of PMR
- IV steroids in place of prednisone pending ST eval
Chronic Pain Syndrome
- resume Cymbalta once patient able to tolerate po
Hypothyroidism
- hold levothyroxine pending ST eval
DVT ppx: SCDs
Code: CPR, no intubation
d/w daughter at bedside
Anticipated Discharge: > 48 hours
Subjective/Interval History
-
Date of Service: June 10, 2025
L sided weakness, LUE and LLE
Objective Data
-
Labs:
Laboratory Results
06/10/25
07:38
WBC 7.8
Hgb 13.7
Hct 40.9
Plt Count 125 L
Sodium 138
Potassium 3.8
Chloride 106
Carbon Dioxide 31 H
BUN 20 H
Creatinine 0.6
Glucose 81
Calcium 8.7
Vital Signs:
Vital Signs
Temp Pulse Resp BP Pulse Ox
98.4 F 59 16 140/61 98
06/10/25 03:40 06/10/25 03:40 06/10/25 03:40 06/10/25 03:40 06/10/25 03:40
I&O
06/09/25 06/10/25 06/11/25
06:59 06:59 06:59
Intake Total 102 / 102
Balance 102 / 102
Physical Exam
-
General: No Apparent Distress and Appears Chronically Ill
HEENT: Normocephalic and Atraumatic
Respiratory: Negative Wheezes
Cardiac: Regular Rhythm, S1/S2 and Murmur (systolic murmur)
GI: Soft and Nontender
Genito-urinary: No Costovertebral Tender
Neuro: Awake, Alert and Other (LUE and LLE 1/5 strength. LUE with sensory deficits); Negative Tremors
Psych: Calm
Data Reviewed
-
Total Time Spent with Patient (in minutes): 41
CT Scan: Report Reviewed by me
Labs: Labs Reviewed by me
[2025-06-10] MEDS: ASPIRIN 300 MG RECTAL (09:25)
[2025-06-10] MEDS: SOLU-MEDROL PF 4 MG IV (09:33)
--- NOTE | 2025-06-10 13:37 | W.PN.NEURO.1 ---
Today's Communication / Plan
-
Continue valproic acid, consider conversion to IV
Provide aspirin and clopidogrel if patient passes bedside swallow testing. Otherwise provide aspirin by rectum
Provide atorvastatin 80 mg daily based on LDL levels greater than 70
There are no medications that would improve or even significantly stabilize the patient's severe dementia
Neuro Assessment/Plan
Assessment
Abrupt onset of left upper extremity weakness
Most likely due to acute ischemic stroke
Plan
Continue valproic acid, consider conversion to IV
Provide aspirin and clopidogrel if patient passes bedside swallow testing. Otherwise provide aspirin by rectum
Provide atorvastatin 80 mg daily based on LDL levels greater than 70
There are no medications that would improve or even significantly stabilize the patient's severe dementia
Rehabilitation evaluations and treatment
Will follow peripherally
Subjective/Objective
Subjective Data
Date of Service: June 10, 2025
Patient unable to provide her own medical history
Objective Data
Vital Signs
Temp Pulse Resp BP Pulse Ox
36.8 C 74 16 149/80 97
06/10/25 11:22 06/10/25 11:22 06/10/25 11:22 06/10/25 11:22 06/10/25 11:49
Lab Results
06/10/25 07:38
06/10/25 07:38
PT 12.9 Sec (11.4-14.6) 06/09/25 12:18
INR 0.94 06/09/25 12:18
APTT 28.6 Sec (23.4-35.0) 06/09/25 12:18
Sodium 138 mmol/L (135-145) 06/10/25 07:38
Potassium 3.8 mmol/L (3.5-5.1) 06/10/25 07:38
BUN 20 mg/dl (7-17) H 06/10/25 07:38
Glucose 81 mg/dl (70-99) 06/10/25 07:38
Calcium 8.7 mg/dl (8.4-10.2) 06/10/25 07:38
LDL Cholesterol, Calc 94 mg/dl 06/10/25 07:38
Patient Allergies
adhesive tape Allergy (Verified 06/09/25 12:17)
Rash
Anesthetics - Amide Type - Select A Allergy (Verified 06/09/25 12:17)
gets nervous
Penicillins Allergy (Verified 06/09/25 12:17)
Hives
Review of Systems
-
Unable to obtain full review of systems at this time due to: Dementia
History Source: Patient
All other systems: Reviewed and negative
Physical Exam
-
General: No Apparent Distress and Appears Stated Age
Eyes: Round OU, [place] Conjunctivae and No Ptosis
HEENT: Anicteric and Moist Mucous Membranes
Neck: Full Range of Motion
Respiratory: No Dyspnea
Cardiac: No JVD
GI: Non-distended
Skin: Unremarkable
Extremities: No Clubbing, No Cyanosis and No Edema
Psych: Negative Intact Judgement/Insight
Extended Neurological Exam
Mood & Affect: Affect Unremarkable
Attention Span & Concentration: Awake, Alert, Interactive (Intermittently interactive and at times refusing examiners requests), Unable to Perform 2 Step Request and Other (has difficulty with single step requests)
Memory: Reduced and Unable to Recall Personal History
Tremor: Hand Tremor Absent and Head Tremor Absent
Involuntary Movement: None
Speech: Quality Unremarkable and Severely Reduced Output
Cranial Nerve II: Left Eye: Pupillary Size Unremarkable and Visual Holt Grossly Intact
Cranial Nerve II: Right Eye: Pupillary Size Unremarkable and Visual [place] Grossly Intact
Cranial Nerves III, IV, : Extraocular Movement: Grossly Intact
Cranial Nerve V: Facial Sensation: Unable to Assess
Cranial Nerve VII: Facial Symmetry: Normal Facial Symmetry
Cranial Nerve VIII: Hearing: Unremarkable Hearing to Normal Conversational Volume
Cranial Nerves IX, X: Palate Movement: Unable to Assess
Cranial Nerve XI: Shoulder Shrug: Unable to Assess
Cranial Nerve XII: Tongue Protusion: Unable to Assess
Muscle Strength, Overall: Spontaneously Moves (All extremities)
Muscle Bulk & Tone: Bulk Unremarkable and Tone Unremarkable
Pronator Drift: Drift in Left Upper Extremity; Negative Drift in Right Upper Extremity
Cold Sensation: Unable to Assess
Vibration Sensation: Unable to Assess
Touch Sensation: Unremarkable
Gait & Station: Unable to Assess
Data Reviewed
-
Labs: Report Reviewed
Reviewed with: Physician and Nurse Practioner
Old Records: Summarized
Past History
Past History
ED Past Medical History: CVA, GERD, HTN, Seizures, Hypothyroidism, Psychiatric (Anxiety, Panic disorder) and Other (PMR, dementia, T12 compression fracture, diverticulitis, anemia, Migraines, Vertigo)
ED Past Surgical History: Appendectomy, Orthopedic (Laminectomy, Left and right knee replacements, Left femur fracture,, Left hip replacement, Left elbow surgery, ), Tonsilectomy and Other (Fundoplication)
Social History
Tobacco: Non-smoker
Alcohol: None
Drug: None
Personal:
Living: with family
Family History
Family History: Other (Reviewed and noncontributory)
Medications
-
Medications:
Generic Name Dose Route Start Last Admin
Trade Name Freq PRN Reason Stop Dose Admin
Acetaminophen 650 mg 06/09/25 14:33
Acetaminophen 650 Mg Rectal Suppository RECTAL 07/07/25 14:32
Q4HPRN PRN
ESPINO, mild pain, or temp >100.4F
Acetaminophen 650 mg 06/09/25 14:33
Acetaminophen 325 Mg Tablet PO 07/07/25 14:32
Q4HPRN PRN
ESPINO, mild pain, or temp >100.4F
Aspirin 300 mg 06/10/25 08:00 06/10/25 09:25
Aspirin 300 Mg Rectal Suppository RECTAL 07/08/25 07:59 300 mg
DAILY FRANCISCO Administration
Valproate Sodium 125 mg/ 51.25 mls @ 55 mls/hr 06/09/25 18:00 06/10/25 11:33
Sodium Chloride IV 07/07/25 17:59 51.25 mls
Q6 FRANCISCO Administration
Methylprednisolone Sodium Succinate 4 mg 06/10/25 08:00 06/10/25 09:33
Methylprednisolone Pf 40 Mg/Ml Vial IV 07/08/25 07:59 4 mg
DAILY FRANCISCO Administration
Sodium Chloride 0 flush 06/09/25 15:00
Sodium Chloride 0.9% (Flush) Syringe IV 07/07/25 14:59
PER PROTOCOL FRANCISCO
--- NOTE | 2025-06-10 13:48 | CM ---
Pt is still being evaluated for L sided weakness; MRI and EEG planned; also a neuro consult. PT/OT rec snf at discharge. Speech recommends puree and thin liquids. Spoke with .Made him aware of PT/OT recommendations. Will need to get auth
when planning for discharge
Plan: DC to [facility] SNF.
--- NOTE | 2025-06-10 16:36 | PTOTSP ---
Speech Therapy VSE:
Patient presents with mild oropharyngeal dysphagia. No aspiration occurred, however intermittent penetration occurred with thin liquids, which was not observed to increase or descend towards level of true vocal folds as trials progressed. No
significant pharyngeal residue observed.
Esophageal screening not completed due to body habitus with left lateral lean, requiring side rail and pillow for upright support, inhibiting VSE machine from scanning down. Of note, patient with history of severe reflux requiring yeyo
fundoplication in 40s. PES opening appeared partial at times, however at other times, PES appeared widely patent with contrast passively entering esophagus prior to swallow initiation. Suspect patent UES in combination with reflux history would
place patient at higher risk for reverse aspiration. Please see patient care note for full details of penetration and swallowing physiology.
Recommend:
1. IDDSI Level 6 (soft and bite sized solids) and thin liquids via single sip
2. Medications crushed vs whole in puree
3. Strict aspiration and reflux precautions: Upright all meals, small bites/sips, slow rate, intermittent throat clear/cough + re-swallow, remain upright for 60 minutes following PO intake
4. Close supervision with intake
5. Modifiable risk factors for aspiration pneumonia including encouraging frequent and thorough oral care, pulmonary hygiene measures, and increasing physical mobility as medically feasible
6. ROAD GRADER to follow for further education regarding results and recommendations of study, to assess tolerance of diet, and to assess candidacy for solid advancement.
[2025-06-10] MEDS: PLAVIX 75 MG PO (18:13)
[2025-06-10] MEDS: LIPITOR 80 MG PO (18:13)
--- NOTE | 2025-06-11 02:23 | DOWNTIME ---
There was a [employer] Client Curb Attendant Downtime on 06/11/2025 from 0100 to 06/11/2025 at 0215. Downtime documentation of patient's care, including medication administrations, has been reconciled in the electronic record per guidelines. Refer to the
patient's paper chart under the miscellaneous tab to see printed paper medication records and downtime forms.
[2025-06-11 03:31] VITALS: BP 130/64
[2025-06-11] MEDS: DEPACON 51.25 MG IV ×2 (05:25→13:11)
[2025-06-11 07:41] VITALS: BP 120/68
[2025-06-11 08:30] LABS: Hematocrit 39.9 % (37.0-47.0); Hemoglobin 13.0 g/dL (12.0-16.0); Mean Corp Hgb Conc. 32.6 g/dL (33.0-37.0); Mean Corpuscular Volume 92.8 fL (81.0-99.0); Platelet Count 130 10^3/uL (130-400); Red Cell Dist. Width 12.9 % (11.5-14.5)
[2025-06-11] MEDS: ASPIR LOW (ENTERIC COATED) 81 MG PO (08:38)
[2025-06-11] MEDS: PLAVIX 75 MG PO (08:38)
[2025-06-11] MEDS: SOLU-MEDROL PF 4 MG IV (08:39)
[2025-06-11 09:09] LABS: Blood Urea Nitrogen 21 mg/dl (7-17); Calcium 8.7 mg/dl (8.4-10.2); Carbon Dioxide 26 mmol/L (22-30); Chloride 108 mmol/L (98-107); Estimated Creatinine Clearance 51 ml/min; Glucose 88 mg/dl (70-99); Potassium 3.6 mmol/L (3.5-5.1); Sodium 137 mmol/L (135-145); eGFR > 60.00
[2025-06-11 11:07] VITALS: BP 145/72
--- NOTE | 2025-06-11 12:22 | W.PN.HOSP.TC ---
Addendum entered and electronically signed by Jeff Steele MD 06/11/25 12:38:
EEG was negative
Original Note:
Today's Communication/Plan
-
medically stable for DC to SNF pending Auth. CM aware.
Assessment / Plan
Assessment / Plan
Assessment:
Acute CVA
- MRI: multiple small foci of restricted diffusion involving the posterior right basal ganglia and right frontal white matter consistent with acute infarctions within the right MCA territory. There is no evidence of hemorrhagic transformation
- CTA: No evidence for hemodynamically significant stenosis of the common carotid arteries, carotid bulbs, or proximal internal carotid arteries bilaterally. No significant narrowing involving the vertebral or basilar arteries. Diffuse luminal
irregularity of the posterior cerebral arteries, left greater than right, with moderate multifocal stenoses involving the distal left posterior cerebral arteries.
- continue ASA/Plavix x 21 days, then ASA alone
- continue Statin, LDL 94. A1c 5.0%
- PT/OT/ST - dc to [facility] SNF. continue IDDSI 6 diet
Hx of seizure
- resume Depakote sprinkles at discharge
- EEG pending
Moderate on Echo
- OP Cards followup
Hx of PMR
- resume oral steroids at discharge
Chronic Pain Syndrome
- resume Cymbalta at discharge
Hypothyroidism
- resume levothyroxine at discharge
DVT ppx: SCDs
Code: CPR, no intubation
d/w daughter/ at bedside
Dispo: medically stable for DC to SNF pending Auth. CM aware.
Anticipated Discharge: Today
Subjective/Interval History
-
Date of Service: June 11, 2025
no new complaints
family at bedside; eager for dc to SNF today
Objective Data
-
Labs:
Laboratory Results
06/11/25
07:39
WBC 8.7
Hgb 13.0
Hct 39.9
Plt Count 130
Sodium 137
Potassium 3.6
Chloride 108 H
Carbon Dioxide 26
BUN 21 H
Creatinine 0.7
Glucose 88
Calcium 8.7
Vital Signs:
Vital Signs
Temp Pulse Resp BP Pulse Ox
98.1 F 68 16 145/72 98
06/11/25 11:07 06/11/25 11:07 06/11/25 11:07 06/11/25 11:07 06/11/25 11:07
I&O
06/10/25 06/11/25 06/12/25
06:59 06:59 06:59
Intake Total 102 / 102 422 / 422
Balance 102 / 102 422 / 422
Physical Exam
-
General: No Apparent Distress and Appears Chronically Ill
HEENT: Normocephalic and Atraumatic
Respiratory: Negative Wheezes
Cardiac: Regular Rhythm, S1/S2 and Murmur
GI: Soft and Nontender
Genito-urinary: No Costovertebral Tender
Neuro: AO x 3 and Other (LUE and LLE 1/5 strength. LUE with sensory deficits)
Psych: Calm
Data Reviewed
-
Total Time Spent with Patient (in minutes): 42
Labs: Labs Reviewed by me
--- NOTE | 2025-06-11 12:40 | W.DCSUMMARY ---
Discharge Summary
Discharge Data
Date of Admission: 06/09/25
Date of Discharge: 06/11/25
-
Pending Results: No
Hospital Course
89 yo F, history of hypothyroidism, chronic pain, PMR on steroids, hx of seizure on meds presented to ER on 06/09 with L arm and L leg weakness. She woke up with these symptoms per family therefore was not a candidate for TNK and also CTA did not
show any large occlusions requiring thrombectomy. CT head was negative. MRI showed multiple small foci of restricted diffusion involving the posterior right basal ganglia and right frontal white matter consistent with acute infarctions within the
right MCA territory. Patient was placed on ASA/Plavix x 21 days, then ASA alone. Statin was started. Neurology consulted and performed an EEG which was negative. She was seen by PT/OT/ST and recommended for SNF.
Discharge Plan
-
Patient Disposition: Fpc/SNF
Discharge Diagnosis/Procedures: acute CVA
Condition: Fair
Diet: Other diet
Additional Diets: IDDSI 6 diet
Activity: As tolerated
Driving Restrictions: No driving
Bathing Restrictions: None
Other Services: PT, OT and ST
Referrals:
Alber Kruse MD [Family Provider, [facility]]
Prescriptions:
New
atorvastatin 80 mg Tablet
80 mg PO QPM Qty: 30 0RF
clopidogrel 75 mg Tablet
75 mg PO DAILY Qty: 20 0RF
aspirin 81 mg Tablet,Delayed Release (Dr/Ec)
81 mg PO DAILY Qty: 100 0RF
Continued
duloxetine 30 mg Capsule,Delayed Release(Dr/Ec)
30 mg PO DAILY
prednisone 5 mg tablet
5 mg PO DAILY
levothyroxine 100 mcg tablet
100 mcg PO DAILY
multivitamin Tablet
1 tab PO DAILY
magnesium hydroxide [Milk of Magnesia] 400 mg/5 mL Suspension
15 ml PO DAILY PRN (Reason: constipation)
bisacodyl 10 mg Suppository
10 mg OH DAILY PRN (Reason: constipation)
Fleet Enema 19-7 gram/118 mL Enema
118 ml OH DAILY PRN (Reason: constipation)
acetaminophen 500 mg/15 mL Liquid
1,000 mg PO Q8HPRN PRN (Reason: mild pain)
divalproex [Depakote Sprinkles] 125 mg Capsule, Delayed Rel Sprinkle
125 mg PO QID
Icy Hot 30-10 % Cream
1 applic TOPICAL HS
Held
celecoxib [Celebrex] 200 mg Capsule
200 mg PO HS
Hold Instructions: 07/02/25 - hold while on dual antiplatelets
Discharge Date and Time
Print Language: [place]LAND[place]
--- NOTE | 2025-06-11 12:54 | CM ---
Pt is discharged back to [facility] today pending COVID test results. Dr Steele aware. Family aware of discharge. Will travel by ambulance
[employer] Auth# .[id number]
Approval dates 06/11-06/17/25
Review date 06/17
Updates fax: [phone]
[facility]
Report:[phone]
fax: [phone]
--- NOTE | 2025-06-11 13:40 | PTOTSP ---
Acute Care Evaluation & Follow-Up Note
Given the information obtained from background history from the pt's regarding the pt's baseline function, clinical informal observations, the SLUMS (03/19), and the Quick Aphasia Battery (QAB) (.), pt is currently presenting with:
- left upper quadrant visual neglect
- a severe cognitive linguistic impairment
- moderate expressive language impairment
- moderately-severe receptive language impairment
- severe cognitive linguistic impairment
Per pt's , pt's current cognitive linguistic presentation is, in his opinion, fairly consistent with her baseline but perhaps 'a bit worse' with some areas of function that are either worse and/or presenting with new impairments. Pt's
also indicated that pt's weak vocal quality with reduced vocal volume that occasionally impact's pt's speech intelligibility is consistent with her baseline.
Pt also continues to present with clinical signs/symptoms of mild oropharyngeal dysphagia, consistent with outcomes of VFSS that was completed on 06/10/2025. Recommending the continuation of previously provided information s/p VFSS.
Recommendations:
- Continued CORPORATE LAWYER tx for cognitive communication tx while in acute care and at next level of care at SNF/LTC to ensure pt can safely and meaningfully participate in ADLs and preferred activities of PLOF.
1. IDDSI Level 6 (soft and bite sized solids) and thin liquids via single sip
2. Medications crushed vs whole in puree
3. Strict aspiration and reflux precautions: Upright all meals, small bites/sips, slow rate, intermittent throat clear/cough + re-swallow, remain upright for 60 minutes following PO intake
4. Close supervision with intake
5. Modifiable risk factors for aspiration pneumonia including encouraging frequent and thorough oral care, pulmonary hygiene measures, and increasing physical mobility as medically feasible
6. CORPORATE LAWYER to follow for further education regarding results and recommendations of study, to assess tolerance of diet, and to assess candidacy for solid advancement.
[2025-06-11 13:55] LABS: COVID-19 Antigen Negative (Negative)
[2025-06-11 15:41] VITALS: BP 135/68
== END 2025-06-11 17:04 | DRG 65 ==
LOC: 4 EAST ACU 08:28
PROVIDERS: Registered Nurse; Registered Nurse Critical Care Medicine; ADMITTING PHYSICIAN Hospitalist; ATTENDING PHYSICIAN Internal Medicine; CONSULT PHYSICIAN Psychiatry & Neurology Neurology; EMERGENCY PHYSICIAN Student in an Organized Health Care Education/Training Program; FAMILY PHYSICIAN Family Medicine
DX: I63.9 Cerebral infarction, unspecified (principal); F03.B3 Unspecified dementia, moderate, with mood disturbance; F03.B4 Unspecified dementia, moderate, with anxiety; F32.A Depression, unspecified; E03.9 Hypothyroidism, unspecified; R53.1 Weakness; R29.810 Facial weakness; Z88.0 Allergy status to penicillin; Z79.890 Hormone replacement therapy; Z96.653 Presence of artificial knee joint, bilateral; Z96.642 Presence of left artificial hip joint; D64.9 Anemia, unspecified; F41.0 Panic disorder [episodic paroxysmal anxiety]; G25.81 Restless legs syndrome; G89.4 Chronic pain syndrome; I10 Essential (primary) hypertension; K21.9 Gastro-esophageal reflux disease without esophagitis; M35.3 Polymyalgia rheumatica; R29.708 NIHSS score 8; R47.01 Aphasia; Z11.52 Encounter for screening for COVID-19
CPT/HCPCS: 70450; 70496; 70498; 70551; 74230; 80048; 80053; 80061; 80164; 82962; 83036; 84484; 85025; 85027; 85610; 85730; 87070; 87811; 92523; 92526; 92610; 92611; 93005; 93306; 95816; 97112; 97163; 97167; 97535; 99291; Q9967